=== PATIENT | female | born 1955 | race Caucasian/White ===

== ENCOUNTER → 2022-08-10 08:21 | Outpatient (REF) | payer OTHER, SELFPAY ==
--- NOTE | 2022-08-10 08:31 | CA_ITS ---
Transthoracic Echocardiogram Patient (Last, First, Middle): Josi Serrato M Gender: Female Date of : 1955 Age: 66 Procedure Date: 08/10/2022 Procedure Type: Transthoracic Echocardiogram Location: OP Height: 160.02 cm Weight: 75.75 kg BSA: 1.79 m2 Heart Rate: 54 bpm BP: 125 / 65 mmHg Pressure Vessel Inspector: [place] Referring MD: Shell Greenfield MD Symptoms: Z72.0 - Tobacco use Study Quality: Adequate ECG Rhythm: Bradycardia Conclusions: - The left ventricular systolic function is normal. The calculated ejection fraction is 69% by biplane method. - The inferoseptal wall is hypokinetic. - At most mild aortic stenosis. Findings Left Ventricle Normal left ventricular cavity size. The left ventricular systolic function is normal. The calculated ejection fraction is 69% by biplane method. There is no evidence of regional wall motion abnormalities. Diastolic function is normal for age. Wall Motion Rest Echo Findings The inferoseptal wall is hypokinetic. Right Ventricle Normal right ventricular cavity size and systolic function. Atria Both atria are normal in size. Aortic Valve The aortic valve was not well visualized. There is trace (trivial) aortic valve regurgitation. At most mild aortic stenosis. Mitral Valve The mitral valve appears normal. There is no mitral valve regurgitation. There is no mitral valve stenosis. Pulmonic Valve The pulmonic valve is likely normal. Tricuspid Valve There is trace tricuspid valve regurgitation. There is no evidence of pulmonary hypertension. Great Vessels The asc aorta is normal in size. Venous The inferior vena cava is normal in size and collapses greater than 50% with inspiration. Pericardium/Pleural There is no evidence of pericardial effusion. Prior Study Comparison Changes noted compared to prior study dated: 02/16/2015. See comment on wall motion. Measurements 2D Linear Measurements IVSd: 0.77 0.6-0.9/0.6-1.0 cm LVIDd: 4.51 3.9-5.3/4.2-5.9 cm LVIDd Index: 2.52 2.4-3.2/2.2-3.1 cm/m2 LVIDs: 4.04 2.0-3.6 cm LVPWd: 0.81 0.7-1.1 cm LA Diam: 2.70 2.7-3.8/3.0-4.0 cm LAIDs Index: 1.51 1.5-2.3 cm/m2 LV Mass: 138.92 67-162/88-224 g LV Mass Index: 77.61 43-95/49-115 g/m2 LVOT Diam: 1.80 3.0+(-)1.3 cm 2D Systolic Function EF 4C: 57.80 >55% EF 2C: 76.70 >55% EF BiP: 69.10 >55% Mitral Valve MV Pk E: 0.78 MV PK A: 0.64 MV Decel Time: 353.00 E/A: 1.20 E'Lateral: 11.20 E'Medial: 8.70 E/E' Med: 9.00 E/E' Lat: 7.00 PHT: 103.00 MVA PHT: 2.14 Decel [place]: 2.22 Aortic Valve AoV Pk Lio: 2.06 AoV Mn Lio: 1.35 AoV VTI: 0.46 AoV Pk Grad: 17.00 Aov Mn Grad: 9.00 CLEMENTE Cont.VTI: 1.99 AI Pk Lio: 3.70 AI [place]: 1.68 LVOT LVOT Pk Lio: 1.55 LVOT Mn Lio: 1.04 LVOT VTI: 0.36 LVOT Pk Grad: 10.00 LVOT Mn Grad: 5.00 LVOT Diam: 1.80 LVOT Area: 2.54 Diastolic Function MV Pk E: 0.78 MV Pk A: 0.64 E/A: 1.20 E'Medial: 8.70 E/E' Med: 9.00 E' Laterial: 11.20 E/E' Lat: 7.00 Right Ventricle TAPSE (mm): 24.30 TVS' Lio: 9.90 Tricuspid Valve RA Press: 3.00 Great Vessels Aorta Sinus of Valsalva: 2.50 2.0-3.5 cm Ao Asc: 2.90 2.1-3.4 cm Pulmonary Valve PV Pk Lio: 1.09 Peak PV Grad: 5.00 Updated in Other Vendor System with Status of Final Darci Rice MD electronically signed on 08/11/2022 1:14:57 PM with status of Final
[2022-08-10 09:20] LABS: MANUAL DIFF FLAG NO
[2022-08-10 09:29] LABS: Basophils Absolute Auto 0.1 X10*3/uL (0.0-0.2); Basophils Percent Auto 0.8 % (0-2); Eosinophils Absolute Auto 0.1 X10*3/uL (0.0-0.4); Eosinophils Percent Auto 2.1 % (0-4); Hematocrit 47.3 % (37.0-47.0); Hemoglobin 15.4 g/dl (12.0-16.0); Imm Gran Abs Auto 0.02 X10*3/uL (0.00-0.03); Imm Gran Pct Auto 0.3 % (0.0-0.4); Lymphocytes Percent Auto 32.4 % (20-40); Mean Corpuscular HGB Conc 32.6 g/dl (31.0-35.0); Mean Corpuscular Hemoglobin 30.3 pg (27.0-33.0); Mean Corpuscular Volume 92.9 fL (80.0-98.0); Mean Platelet Volume 8.6 fL (9.4-12.3); Monocytes Absolute Auto 0.5 X10*3/uL (0.1-1.2); Monocytes Percent Auto 8.4 % (2-11); Neutrophils Absolute Auto 3.5 x10*3/uL (2.0-8.3); Platelet Count 205 X10*3/uL (160-400); Red Blood Count 5.09 X10*6/uL (4.20-5.50); Red Cell Distribution Width 12.4 % (11.0-16.0); White Blood Count 6.3 X10*3/uL (4.8-10.8)
[2022-08-10 10:02] LABS: Alanine Aminotransferase 22 U/L (0-31); Albumin Level 4.7 g/dL (3.5-5.0); Alkaline Phosphatase 114 U/L (39-117); Anion Gap 14 (12-20); Aspartate Amino Transferase 22 U/L (5-31); Bilirubin Total 0.7 mg/dL (0.0-1.0); Blood Urea Nitrogen 19 mg/dL (9-16); Calcium 9.6 mg/dL (8.4-10.2); Carbon Dioxide 28 mmol/L (22-29); Chloride 102 mmol/L (96-108); Cholesterol 302 mg/dL; Estimated Glomerular Filt Rate > 60; Glucose Random 88 mg/dL (60-115); HDL Cholesterol 70 mg/dL; LDL Cholesterol Calculated 214 mg/dl; Potassium 4.7 mmol/L (3.3-5.1); Sodium 139 mmol/L (135-145); Total Protein 7.4 g/dL (6.5-8.0); Triglycerides 91 mg/dL
[2022-08-10 10:23] LABS: Free T4 (Free Thyroxine) 0.97 ng/dL (0.71-1.85); Thyroid Stimulating Hormone 4.18 uIU/mL (0.32-4.0); Vitamin D 25-OH Total 33.7 ng/mL (>30)
[2022-08-10 10:36] LABS: Folate 11.8 ng/mL (> or = 4.0); Vitamin B12 443 pg/mL (200-900)
== END ==
LOC: HO.CARD 08:21
PROVIDERS: PCP Internal Medicine; Visit Provider Internal Medicine
DX: E78.1 Pure hyperglyceridemia (principal); E78.00 Pure hypercholesterolemia, unspecified; Z72.0 Tobacco use
CPT/HCPCS: 36415; 80053; 80061; 82306; 82607; 82746; 84439; 84443; 85025; 93306

== ENCOUNTER 2022-08-17 08:48 | Outpatient (REF) | payer OTHER, SELFPAY ==
--- NOTE | ~2022-08-17 | MM_ITS ---
EXAMINATION: MM SCREENING DIGITAL BREAST TOMOSYNTHESIS, BILATERAL CLINICAL INFORMATION: Screening. Asymptomatic. The lifetime risk of breast cancer based on the Tyrer-Cuzick Model is 4%. COMPARISON: Mammography: 09/16/2017, 07/27/2016 TECHNIQUE: Digital breast tomosynthesis is performed in both the craniocaudal and mediolateral oblique views along with computer-aided detection (CAD). Synthesized 2D images are generated from the tomosynthesis. FINDINGS: There are scattered areas of fibroglandular density (ACR BI-RADS breast composition Category b). There are no significant masses, abnormal calcifications, or other abnormalities. No developing density or architectural abnormality. The axilla are unremarkable. There are 2 chronic dermal lesions again seen overlying the central and inner left breast on CC view and dermal lesion at the posterior medial inferior right breast. MM/MM tomosynthesis screening BI IMPRESSION: No mammographic evidence of malignancy. ASSESSMENT: BI-RADS 2: Benign RECOMMENDATION: Routine annual mammography screening. This patient's information was entered into a reminder system with a target due date for their next mammogram.
== END 2022-08-17 08:49 | disposition home or self-care (01) ==
LOC: HO.MAMMO 08:48
PROVIDERS: PCP Internal Medicine; Visit Provider Internal Medicine
DX: Z12.31 Encounter for screening mammogram for malignant neoplasm of breast (principal)
CPT/HCPCS: 77063; 77067

== ENCOUNTER 2022-08-31 13:41 | Outpatient (REF) | payer OTHER, SELFPAY ==
--- NOTE | ~2022-08-31 | CT_ITS ---
EXAMINATION: CT CHEST SCREENING CLINICAL INFORMATION: Current smoker and nicotine dependence. COMPARISON: None. TECHNIQUE: Multidetector volumetric CT imaging of the chest is performed without contrast using low dose technique. Additional 2D coronal and sagittal reformatted images and axial 3D maximum intensity projection (MIP) images are generated on the CT workstation. This CT examination was performed using dose optimization techniques as appropriate, variously including the following: *Automated exposure control *Adjustment of mA and/or kV according to patient size (this includes techniques or standardized protocols for targeted exams where dose is matched to indication/reason for exam; i.e. extremities or head) *Use of iterative reconstruction technique DLP: 46 mGy-cm FINDINGS: LUNGS: There is diffuse centrilobular emphysematous changes of both lungs without acute pneumonic process. Scattered 1 mm calcification seen in both upper lobes, right lower lobe and left lower lobe. There is a 6 mm nodule with eccentric calcification in the lingula adjacent to the major fissure axial image 273/6, 2 mm noncalcified nodule in the lingula axial image 256/6 and a 6 mm nodule right upper lobe perivascular axial image 189/6. There are 2 mm nodular thickenings in right and left major fissure likely lymph nodes. MEDIASTINUM: The thyroid lobes are symmetric and normal. The central trachea and the bronchi are widely patent. Heart size and the great vessels are normal caliber. No abnormal-sized lymph node seen. There is no pericardial effusion. Central trachea and the bronchi are widely patent. CORONARY ARTERY CALCIFICATION: There are coronary artery calcifications present. PLEURA: There is no pleural effusion. No pleural mass or thickening. AXILLA: No abnormal axillary lymph node seen. UPPER ABDOMEN: Visualized liver, spleen, pancreas and bilateral adrenal glands are unremarkable. The gallbladder has been surgically removed. OSSEOUS STRUCTURES: There is moderate ventral spondylosis throughout dorsal spine. No aggressive lytic or sclerotic process seen. CT/CT lung screening IMPRESSION: Diffuse emphysema without acute process. There are multiple calcified and noncalcified lung nodules largest noncalcified lung nodule measuring 6 mm. ASSESSMENT: Lung-RADS category 2: Benign. RECOMMENDATION: Low-dose annual CT chest exam.
== END 2022-08-31 13:42 | disposition home or self-care (01) ==
LOC: HO.CT 13:41
PROVIDERS: Visit Provider Physician Assistant Medical
DX: Z12.2 Encounter for screening for malignant neoplasm of respiratory organs (principal); F17.210 Nicotine dependence, cigarettes, uncomplicated
CPT/HCPCS: 71271; G0296

== ENCOUNTER 2022-10-19 13:29 | Outpatient (REF) | payer MEDICARE, OTHER, SELFPAY ==
--- NOTE | ~2022-10-19 | MM_ITS ---
EXAMINATION: BONE DENSITOMETRY CLINICAL INDICATION: Asymptomatic menopausal state. COMPARISON: None (current study represents initial baseline exam). TECHNIQUE: Using a [employer] DXA System (software version: 13.1) manufactured by [employer], dual-energy x-ray absorptiometry was performed of the lumbar spine and left hip. The images are of good technical quality. Summary results are attached. FINDINGS: AP SPINE L1-L4: BMD 0.880 g/cm2, Z-score -1.3, T-score -2.5, osteoporosis. LEFT FEMUR, NECK: BMD 0.932 g/cm2, Z-score 0.5, T-score -0.8, normal. LEFT FEMUR, TOTAL: BMD 0.791 g/cm2, Z-score -0.8, T-score -1.7, osteopenia. IDENTIFIED RISK FACTORS: Early menopause, hysterectomy, left oophorectomy, secondary osteoporosis, tobacco user (current smoker). HISTORY OF FRACTURE: None listed. MEDICATIONS: None listed. MM/XR DEXA axial skeleton IMPRESSION: 1. DIAGNOSIS: Osteoporosis based on the lowest T-score value of -2.5 in the lumbar spine applying World Health Organization criteria. 2. 10-YEAR FRACTURE RISK PREDICTION, FRAX: According to the guidelines, FRAX calculation should only be performed on patients in the osteopenia bone density category. Therefore, FRAX was not performed on this patient. 3. Treatment Recommendations: NOF guidelines recommend consideration for treatment in postmenopausal women and men age 50 and older presenting with the following: -A hip or vertebral (clinical or morphometric) fracture. -T-score less than or equal to -2.5 at the femoral neck or spine after appropriate evaluation to exclude secondary causes. -Low bone mass at the hip or spine and a 10-year fracture probability by FRAX of greater than or equal to 3% for hip fracture or greater than or equal to 20% for major osteoporotic fracture based on the [place] adapted WHO algorithm. 4. Other Recommendations: All treatment decisions require clinical judgment and consideration of individual patient factors, including patient preferences, comorbidities, previous drug use, risk factors not captured in the FRAX model (e.g. frailty, falls, vitamin D deficiency, increased bone turnover, interval significant decline in bone density) and possible under or overestimation of fracture risk by FRAX. Additional medical evaluation for secondary cause of low bone mineral density may be appropriate. FUTURE SCAN RECOMMENDATION: People with diagnosed cases of osteoporosis or at high risk for fracture should have regular bone mineral density tests. For patients eligible for Medicare, routine testing is allowed once every 2 years. The testing frequency can be increased to one year for patients who have rapidly progressing disease, those who are receiving or discontinuing medical therapy to restore bone mass, or have additional risk factors.
== END 2022-10-19 13:30 | disposition home or self-care (01) ==
LOC: HO.MAMMO 13:29
PROVIDERS: PCP Internal Medicine; Visit Provider Obstetrics & Gynecology
DX: Z13.820 Encounter for screening for osteoporosis (principal); Z78.0 Asymptomatic menopausal state
CPT/HCPCS: 77080

== ENCOUNTER → 2022-11-01 13:05 | Outpatient (BNVA) | payer MEDICARE, OTHER, SELFPAY | PROVIDERS: PCP Internal Medicine; Visit Provider Obstetrics & Gynecology | DX: M81.0 Age-related osteoporosis without current pathological fracture (principal); I25.10 Atherosclerotic heart disease of native coronary artery without angina pectoris; E78.00 Pure hypercholesterolemia, unspecified; G47.33 Obstructive sleep apnea (adult) (pediatric); F17.210 Nicotine dependence, cigarettes, uncomplicated | CPT/HCPCS: 93005; 99202; 99212 ==

== ENCOUNTER 2022-11-02 09:15 | Outpatient (REF) | payer MEDICARE, SELFPAY ==
--- NOTE | 2022-11-02 12:01 | PFT_ITS ---
INDICATION: COPD. SPIROMETRY: FEV1 to FVC of 70% with an FEV1 of 1.94 L, which is 83% predicted and an FVC of 2.76 L, which is 90% predicted. There was a significant response to bronchodilators noted. The [id number] was down to 49% predicted. The maximum voluntary ventilation 59% predicted. LUNG VOLUMES: Total lung capacity 108% predicted with residual volume 132% predicted. DIFFUSION CAPACITY: DLCO 64% predicted. COMPARISONS: None. INTERPRETATION: There is an obstructive ventilatory defect consistent with mild COPD. There is also significant response to bronchodilators noted. The patient does have evidence of small airways disease. There is also a moderate decrease in the maximum voluntary ventilation secondary to deconditioning and also worsening dynamic inspiratory capacity. Lung volumes with significant air trapping due to COPD and also mild diffusion impairment. Clinical correlation warranted. MD MAICO Rodriguez/[facility] / [id number]
== END 2022-11-02 09:16 | disposition home or self-care (01) ==
LOC: HO.RESP 09:15
PROVIDERS: PCP Internal Medicine; Visit Provider Internal Medicine
DX: J44.9 Chronic obstructive pulmonary disease, unspecified (principal)
CPT/HCPCS: 94060; 94727; 94729

== ENCOUNTER → 2022-12-07 09:19 | Outpatient (REF) | payer MEDICARE, SELFPAY ==
--- NOTE | ~2022-12-07 | NM_ITS ---
EXERCISE MYOCARDIAL PERFUSION STUDY INDICATION: Coronary artery disease, assess for ischemia TECHNIQUE: The patient was brought in for an exercise perfusion study on 12/07/2022. Patient performed exercise as per Shar protocol and was injected 25 mCi of sestamibi once target heart rate was achieved. Images were obtained using the SPECT gamma camera interlaced with the gating device. Images were obtained in supine position. Resting perfusion study was performed on 12/14/2022. Patient was administered 25 mCi of sestamibi intravenously at rest. Images were then obtained in supine position. Images were processed with the software and compared side to side in short axis, horizontal long axis and vertical long axis views. FINDINGS: Raw images were reviewed. The stress perfusion study showed mildly reduced tracer uptake in the basal septum. Similar finding in the CT attenuation corrected images. The gated study shows normal LV systolic function with calculated LVEF of 68%. LV cavity is normal in size. The gated study shows septal hypokinesis. Resting study shows diminished tracer uptake in the basal septum but otherwise unremarkable. No significant change with CT attenuation correction. Gating at rest reveals normal wall motion with ejection fraction at 61%. The findings are consistent with basal septal fixed defect. No clear reversible defects. NM/NM cardiolite stress test IMPRESSION: 1. Myocardial perfusion imaging study shows no clear evidence of any ischemia. Fixed defect in the basal septum, could be artifact. Cannot exclude a prior infarct. 2. Gated LVEF is 68% during stress and 61% during rest. 3. Transient ischemic dilatation not present. EKG component of the test reported separately.
--- NOTE | 2022-12-07 09:21 | CA_ITS ---
Acquisition Time: 2022-12-07 09:35:02 Total Exercise Time: 00:06:30 Test Indications: ABN ECHO Medications: SEE CHART Protocol: DARYL Max HR: 144 BPM 92% of Pred: 155 BPM Max BP: 190/070 mmHG Max Work Load: 7.7 METS Exercise stress test with exercise 6 min 30 sec, achieving 92% MPHR, with fatigue and mild sob, no chest discomfort, with isolated PVCs, with hypertensive response to exercise with max BP 190/70, without EKG changes meeting criteria for ischemia. In recovery BP returned to 130/70. Nuclear images pending. Test reviewed with Dr Barrientos Referred By: Darci Rice Overread By: ROB SIERRA
== END ==
LOC: HO.CARD 09:19
PROVIDERS: PCP Internal Medicine; Visit Provider Internal Medicine
DX: I25.10 Atherosclerotic heart disease of native coronary artery without angina pectoris (principal); E78.00 Pure hypercholesterolemia, unspecified
CPT/HCPCS: 78452; 93017; A9500

== ENCOUNTER 2023-01-18 08:22 | Outpatient (REF) | payer MEDICARE, SELFPAY ==
[2023-01-18 09:34] LABS: Alanine Aminotransferase 23 U/L (0-31); Albumin Level 4.2 g/dL (3.5-5.0); Alkaline Phosphatase 114 U/L (39-117); Anion Gap 13 (12-20); Aspartate Amino Transferase 24 U/L (5-31); Bilirubin Total 0.6 mg/dL (0.0-1.0); Blood Urea Nitrogen 14 mg/dL (9-16); Calcium 8.9 mg/dL (8.4-10.2); Carbon Dioxide 28 mmol/L (22-29); Chloride 106 mmol/L (96-108); Cholesterol 181 mg/dL; Estimated Glomerular Filt Rate > 60; Glucose Random 88 mg/dL (60-115); HDL Cholesterol 61 mg/dL; LDL Cholesterol Calculated 96 mg/dl; Potassium 4.8 mmol/L (3.3-5.1); Sodium 142 mmol/L (135-145); Total Protein 6.7 g/dL (6.5-8.0); Triglycerides 122 mg/dL
[2023-01-18 09:56] LABS: Thyroid Stimulating Hormone 3.97 uIU/mL (0.32-4.0)
== END 2023-01-18 08:23 | disposition home or self-care (01) ==
LOC: HO.LAB 08:22
PROVIDERS: Visit Provider Internal Medicine
DX: E03.9 Hypothyroidism, unspecified (principal); E78.00 Pure hypercholesterolemia, unspecified
CPT/HCPCS: 36415; 80053; 80061; 84439; 84443

== ENCOUNTER → 2023-01-30 09:40 | Outpatient (BNVA) | payer MEDICARE, SELFPAY | PROVIDERS: PCP Internal Medicine; Referring Provider Internal Medicine; Visit Provider Internal Medicine | DX: I25.10 Atherosclerotic heart disease of native coronary artery without angina pectoris (principal); E78.00 Pure hypercholesterolemia, unspecified; G47.33 Obstructive sleep apnea (adult) (pediatric); F17.210 Nicotine dependence, cigarettes, uncomplicated | CPT/HCPCS: 99212 ==

== ENCOUNTER 2023-03-01 15:38 | Outpatient (REF) | payer MEDICARE, SELFPAY ==
--- NOTE | ~2023-03-01 | US_ITS ---
EXAMINATION: US EXTRACRANIAL CAROTID DUPLEX, BILATERAL CLINICAL INFORMATION: Carotid stenosis COMPARISON: None available. TECHNIQUE: Real-time ultrasound and Doppler techniques (integrating B-mode 2-D vascular images, Doppler spectral analysis and color-flow Doppler imaging) were utilized to interrogate the extracranial carotid arteries, the vertebral arteries and proximal subclavian arteries bilaterally. The degree of stenosis is determined by criteria similar to NASCET. FINDINGS: Right Side: 1. There is no significant atherosclerotic plaque seen in the bifurcation/proximal ICA region. 2. The common carotid artery PSV proximally is 104 cm/s and distally 78.1 cm/s. 3. The proximal internal carotid artery velocities are 68.9 cm/s systolic and 24.6 cm/s diastolic. 4. The proximal external carotid artery PSV is 100 cm/s. 5. The vertebral artery shows antegrade flow. 6. The subclavian artery waveforms are normal. Left Side: 1. There is no significant atherosclerotic plaque seen in the bifurcation/proximal ICA region. 2. The common carotid artery PSV proximally is 110 cm/s and distally 114 cm/s. 3. The proximal internal carotid artery velocities are 77.4 cm/s systolic and 32.4 cm/s diastolic. 4. The proximal external carotid artery PSV is 100 cm/s. 5. The vertebral artery shows antegrade flow. 6. The subclavian artery waveforms are normal. US/US carotid duplex BI IMPRESSION: 1. RIGHT: Normal right internal carotid artery without atherosclerotic plaque or hemodynamically significant stenosis. 2. LEFT: Normal left internal carotid artery without atherosclerotic plaque or hemodynamically significant stenosis.
== END 2023-03-01 15:39 | disposition home or self-care (01) ==
LOC: HO.US 15:38
PROVIDERS: PCP Internal Medicine; Visit Provider Internal Medicine
DX: I65.23 Occlusion and stenosis of bilateral carotid arteries (principal)
CPT/HCPCS: 93880

== ENCOUNTER 2024-12-30 08:37 | Outpatient (AMB) | payer MEDICARE, SELFPAY ==
[2024-12-30 08:39] VITALS: BP 136/72; PULSE 89; O2SAT 95; BMI 28.9
--- NOTE | 2024-12-30 08:39 | A.OFFPC_ITS ---
Vital Signs 12/30/24 08:39 Height 5 ft 3 in Weight 163 lb BMI 28.9 BP 136/72 Blood Pressure Location Lt brachial Position Sitting Pulse 89 Pulse Source Pulse Oximeter Pulse Oximetry (%) 95 Oxygen Delivery Method Room Air Intake Visit Reasons: back and hips pain Allergies No Known Allergies [No Known Allergies*] Allergy (Verified 12/30/24 08:40) Medication List - Last Reconciled 12/30/24 by Shell Greenfield MD albuterol sulfate 90 mcg/actuation (Ventolin HFA) 2 puffs inhalation Q6H PRN cetirizine 10 mg PO DAILY PRN ibuprofen 800 mg PO Q8H Tobacco use date assessed: 12/30/24 Fall risk assessment: No Falls in past year Last assessed Fall Risk: 12/30/24 Dental Screening Dental Screen Date: 12/30/24 Did you have a dental visit in the last 12 months?: Yes Did you have a dental problem in the last 6 months where you did not have access to dental care?: No Was dental information given to patient?: Patient has dentist HPI back and hips pain HPI Details 8 months ago low back pain- hx of backj surgery also has hip pain. 2x a week The patient is a 69-year-old female presenting with a follow-up for coronary artery disease and management of associated chronic conditions. She has a history of obstructive sleep apnea managed with CPAP, mild aortic stenosis, hypercholesterolemia, hypothyroidism, and COPD. She has been advised to manage her cardiovascular risk factors aggressively, including smoking cessation given her history of smoking. Despite previous recommendations, she continues to smoke but expresses an intent to quit due to stress at home and family encouragement. The patient has been on rosuvastatin, resulting in a significant reduction of LDL cholesterol levels from 214 mg/dL in 2021 to 96 mg/dL in 2022, although it remains above the target of less than 70 mg/dL. She is also on low-dose aspirin for CAD. Recent medical consultations include a cardiology visit in 2022, where a myocardial perfusion scan revealed no ischemia but a fixed defect indicating a prior infarct. Carotid ultrasound yielded normal results. Routine follow-ups revealed normal blood glucose and liver function tests. The patient's preventat lachelle screenings, colonoscopy, stool test, and mammogram, are due. She reports an earache attributed to sinus issues and admits to experiencing muscle spasms and discomfort in her lower back and hip, which may be related to previous L4 back surgery. She indicates the persistence of these symptoms over the years and describes current management challenges due to work duties and medical supplies. [facility] Medical History (Updated 12/30/24 @ 09:00 by Shell Greenfield MD) Nicotine dependence, cigarettes, uncomplicated Well woman exam Hypertriglyceridemia Overweight (BMI 25.0-29.9) History of seizures Hypothyroid Lumbar radiculopathy Surgical History History of tubal ligation History of colonoscopy History of appendectomy History of hysterectomy History of lumbar surgery History of cholecystectomy History of meniscectomy of left knee Family History (Updated 12/30/24 @ 08:40 by Birgit Cintron [facility]) Sister Skin cancer Father Lung cancer Mother Lung cancer Social History (Updated 11/01/22 @ 13:55 by Maikel Torres Singh) Housing: Apartment Alcohol intake: current Alcohol intake frequency: holidays/special occasions only Patient Tobacco Use Status: Current everyday Tobacco user Tobacco use type: Cigarette Cigarette Packs Per Day: 1 Cigarettes Per Day: 20 Years Smoked: (onset 15yo, 1/2-1ppd x 51yrs, 37pyh) e-Cigarette/Vaping Use: Never Used Second Hand Smoke Exposure: No service: No Current occupational status: employed Cognitive needs: No Hearing needs: No Vision needs: Yes (glasses ) Female Reproductive History Menstrual Age of Menarche: 15 Questionnaire PHQ-9 Over the last 2 weeks, how often have you been bothered by any of the following problems? 1. Little interest or pleasure in doing things: not at all 2. Feeling down, depressed, or hopeless: not at all 3. Trouble falling or staying asleep, or sleeping too much: not at all 4. Feeling tired or having little energy: not at all 5. Poor appetite or overeating: not at all 6. Feeling bad about yourself - or that you are a failure or have let yourself or your family down: not at all 7. Trouble concentrating on things, such as reading the newspaper or watching television: not at all 8. Moving or speaking so slowly that other people could have noticed. Or the opposite - being so fidgety or restless that you have been moving around a lot more than usual: not at all 9. Thoughts that you would be better off or of hurting yourself in some way: not at all Total score: 0 Depression Screening Interpretation: Negative Depression Screening Done: Yes Source: Developed by Drs. Ernst Falcon, Massiel Ellis, Neil Desir and colleagues, with an educational vance from [employer]. Thrive Questionnaire Date Thrive assessed: 12/30/24 I am a: Patient What is your living situation today?: I have a steady place to live Within the past 12 months, did the food you bought not last and you didn't have the money to get more?: Never true Within the past 12 months, did you worry whether your food would run out before you got money to buy more?: Never true Do you have trouble paying for medicines?: No Do you have trouble getting transportation to medical appointments?: No Do you have trouble paying your heating and electricity bill?: No Do you have trouble taking care of your child, family member or friend?: No Do you have trouble with day-to-day activities such as bathing, preparing meals, shopping, managing finances, etc.?: No Are you currently unemployed and looking for a job?: No Are you interested in more education?: No Currently or been in a relationship where the following occur: No concerns reported THRIVE Score: 0 AUDIT C Alcohol Use Questionnaire (AUDIT-C) 1. How often do you have a drink containing alcohol?: Monthly or less 2. How many drinks containing alcohol do you have on a typical day when you are drinking?: 1 or 2 3. How often do you have six or more drinks on one occasion?: Never Total Score: 1 QUE-7 AMB Questionnaire QUE-7 Date QUE - 7 assessed: 12/30/24 Feeling nervous, anxious, or on edge: 0 = Not at all Not being able to stop or control worryin = Not at all Worrying too much about different things: 0 = Not at all Trouble relaxin = Not at all Being so restless that it is hard to sit still: 0 = Not at all Becoming easily annoyed or irritable: 0 = Not at all Feeling afraid as if something awful might happen: 0 = Not at all Total QUE-7 score (0-4 normal; 5-9 mild; 10-14 moderate; 15-21 severe): 0 Source: Developed by Drs. Ernst Falcon, Massiel Ellis, Neil Desir and colleagues, with an educational vance from [employer]. Physical exam (Primary Care) Vital Signs: Last Vital Signs Pulse 89 12/30/24 08:39 BP 136/72 12/30/24 08:39 Pulse Ox 95 12/30/24 08:39 Oxygen Delivery Method Room Air 12/30/24 08:39 BMI result Body Mass Index 28.9 Tobacco/Smoking Status: Tobacco use Status Tobacco use date assessed 12/30/24 12/30/24 08:45 Patient Tobacco Use Status Current everyday Tobacco 12/30/24 08:45 Tobacco use type Cigarette 12/30/24 08:45 e-Cigarette/Vaping Use Never Used 12/30/24 08:45 PHQ-9: PHQ-9 Score PHQ-9: Total score 0 12/30/24 09:12 Depression Screening Interpretation: Negative Thrive Assessment: Date of Thrive Assessment Date Thrive assessed 12/30/24 12/30/24 08:45 Currently or been in a relationship where the following occur: No concerns reported Const General: alert; No acute distress Eyes Conjunctivae: conjunctivae normal Resp Auscultation: clear to auscultation bilaterally Cardio Rate: regular rate Rhythm: regular rhythm GI Inspection: Yes normal to inspection Extrem General: Yes normal to inspection and No edema Office Procedures Flu Questionnaire Does the patient have a severe egg allergy?: No Does the patient have severe life threatening allergies?: No Does the patient have a fever or illness today?: No Has the patient ever had Guillain-[place] Syndrome?: No Has the patient ever had any past reaction to a flu shot?: No Results AMB Urinalysis, Automated UA Leukoctes 125 Judy/uL Last Edit by Birgit Cintron CMA on 12/30/24 09: 19 UA Nitrite Negative Last Edit by Birgit Cintron CMA on 12/30/24 09:19 UA Urobilinogen 0.2 mg/dL Last Edit by Birgit Cintron CMA on 12/30/24 0 9:1 9 UA Protein 15 mg/dL Last Edit by Birgit Cintron CMA on 12/30/24 09:19 UA pH 6.0 Last Edit by Birgit Cintron CMA on 12/30/24 09:19 UA Blood 0 Edmond/uL Last Edit by Birgit Cintron CMA on 12/30/24 09:19 UA Specific [place] 1.030 Last Edit by Birgit Cintron CMA on 12/30/24 09:19 UA Ketone Negative Last Edit by Birgit Cintron CMA on 12/30/24 09:19 UA Bilirubin 0 mg/dL Last Edit by Birgit Cintron CMA on 12/30/24 09:19 UA Glucose 0 mg/dL Last Edit by Birgit Cintron CMA on 12/30/24 09:19 Immunizations Fluarix Triv [id number] (PF) 45 mcg (15 mcg x 3)/0.5 mL IM syringe Performing Provider: Shell Greenfield MD [facility] Administered by: Birgit Cintron CMA on 12/30/24 09:12 Dose Route Admin Location Dispensed Lot Number Expiration Date NDC Data Processing Consultant 0.5 mL IM Left Deltoid 0.5 mL [id number] 05/17/25 [id number] [employer] VIS Given Date VIS Provided VIS Publication Date 12/30/24 Single Vaccine 21 Eligibility Eligibility Date Funding Source Not [facility] Eligible 12/30/24 Private Coding Level of Care Code Est Pt Level 4 (66020) Complex EM visit Add On G2211 Diagnoses Tobacco abuse Z72.0 Atherosclerotic cardiovascular disease I25.10 COPD (chronic obstructive pulmonary disease) J44.9 Hypercholesterolemia E78.00 Hypothyroid E03.9 Obstructive sleep apnea (adult) (pediatric) G47.33 Breast cancer screening by mammogram Z12.31 Colon cancer screening Z12.11 Lumbar degenerative disc disease M51.369 Hip pain, right M25.551 Assessment & Plan Assessment & Plan (1) Tobacco abuse: Code(s): Z72.0 - Tobacco use Category: Medical Plan: Patient is strongly advised to stop smoking (2) Atherosclerotic cardiovascular disease: Code(s): I25.10 - Atherosclerotic heart disease of [place] coronary artery without angina pectoris Category: Medical Plan: Patient is strongly advised to stop smoking. Control the cholesterol, weight, blood pressure, patient has been advised to take aspirin 81 mg once a day, this was mentioned in 2022. As the patient has coronary artery disease. (3) COPD (chronic obstructive pulmonary disease): Comment: PFT 10/2022 mild Code(s): J44.9 - Chronic obstructive pulmonary disease, unspecified Category: Medical Plan: Patient is strongly advised to stop smoking! (4) Hypercholesterolemia: Code(s): E78.00 - Pure hypercholesterolemia, unspecified Category: Medical Plan: Avoid fried foods, chicken skin, eggs, butter margarine, pastries and meat. Be it pork or beef they have a lot of cholesterol with a coronary artery disease needs to have the LDL below 70. Patient needs blood work patient is on rosuvastatin 40 mg once a day (5) Hypothyroid: Code(s): E03.9 - Hypothyroidism, unspecified Category: Medical Plan: Patient needs blood work (6) Obstructive sleep apnea (adult) (pediatric): Comment: ON CPAP Dr. Heath Code(s): G47.33 - Obstructive sleep apnea (adult) (pediatric) Category: Medical (7) Breast cancer screening by mammogram: Code(s): Z12.31 - Encounter for screening mammogram for malignant neoplasm of breast Category: Medical (8) Colon cancer screening: Code(s): Z12.11 - Encounter for screening for malignant neoplasm of colon Category: Medical (9) Lumbar degenerative disc disease: Code(s): M51.369 - Other intervertebral disc degeneration, lumbar region without mention of lumbar back pain or lower extremity pain Category: Medical (10) Hip pain, right: Code(s): M25.551 - Pain in right hip Category: Medical (11) Breast cancer screening by mammogram: Code(s): Z12.31 - Encounter for screening mammogram for malignant neoplasm of breast Category: Medical Plan - Continue rosuvastatin 40 mg daily to further lower LDL cholesterol levels below the target of 70 mg/dL for cardiovascular protection. - Reinforce smoking cessation strategies; consider nicotine replacement therapies or alternative cessation aids as discussed. - Continue low-dose aspirin 81 mg daily for cardiovascular prophylaxis. - Schedule overdue screenings: colonoscopy, stool test, and mammogram. - Address earache with appropriate interventions and consider further evaluation if symptoms persist. - Evaluate back and hip discomfort related to muscle spasms; consider physical therapy evaluation and potential adjustments to current pain management regimen. - Plan follow-up visit to reassess conditions and the effectiveness of current interventions. Orders: Orders Complete Blood Count Auto Diff Today I25.10 - Atherosclerotic heart disease of [place] coronary artery without angina pectoris Lipid Panel Today E78.00 - Pure hypercholesterolemia, unspecified, I25.10 - Atherosclerotic heart disease of [place] coronary artery without angina pectoris Thyroid Stimulating Hormone Today I25.10 - Atherosclerotic heart disease of [place] coronary artery without angina pectoris Vitamin B12 and Folate Today I25.10 - Atherosclerotic heart disease of [place] coronary artery without angina pectoris UA CC w/rflx Micro + Cult Today I25.10 - Atherosclerotic heart disease of [place] coronary artery without angina pectoris, R30.0 - Dysuria PT Evaluation and Treatment Today M25.551 - Pain in right hip Comprehensive Met. Panel Today I25.10 - Atherosclerotic heart disease of [place] coronary artery without angina pectoris Free T4 (Free Thyroxine) Today I25.10 - Atherosclerotic heart disease of [place] coronary artery without angina pectoris Vitamin D 25-OH Total Today I25.10 - Atherosclerotic heart disease of [place] coronary artery without angina pectoris XR hip RT min 2V Today M25.551 - Pain in right hip XR lumbar spine 2-3V Today M51.369 - Other intervertebral disc degeneration, jung mbar region without mention of lumbar back pain or lower extremity pain MM tomosynthesis screening BI Today Z12.31 - Encounter for screening mammogram for malignant neoplasm of breast CA echo transthoracic complete Today I35.0 - Nonrheumatic aortic (valve) stenosis Referrals Gastroenterology Referral Z12.11 - Encounter for screening for malignant neoplasm of colon Medications: New meloxicam 15 mg PO DAILY 30 tabs 0RF M25.551 - Pain in right hip aspirin 81 mg PO DAILY 90 tabs 2RF I25.10 - Atherosclerotic heart disease of [place] coronary artery without angina pectoris nicotine 1 patch transdermal DAILY 28 ea 0RF F17.200 - Nicotine dependence, unspecified, uncomplicated nicotine (polacrilex) 2 mg buccal Q2H PRN 100 ea 0RF nicotine cravings F17.200 - Nicotine dependence, unspecified, uncomplicated Refilled albuterol sulfate 90 mcg/actuation (Ventolin HFA) 2 puffs inhalation Q6H PRN 8.5 grams 0RF shortness of breath or wheezing J44.9 - Chronic obstructive pulmonary disease, unspecified
== END 2024-12-30 09:29 | disposition home or self-care (01) ==
PROVIDERS: PCP Internal Medicine; Visit Provider Internal Medicine
DX: Z72.0 Tobacco use (principal); I25.10 Atherosclerotic heart disease of native coronary artery without angina pectoris; J44.9 Chronic obstructive pulmonary disease, unspecified; E78.00 Pure hypercholesterolemia, unspecified; E03.9 Hypothyroidism, unspecified; G47.33 Obstructive sleep apnea (adult) (pediatric); Z12.31 Encounter for screening mammogram for malignant neoplasm of breast; Z12.11 Encounter for screening for malignant neoplasm of colon; M51.369 Other intervertebral disc degeneration, lumbar region without mention of lumbar back pain or lower extremity pain; M25.551 Pain in right hip; Z23 Encounter for immunization; M54.50 Low back pain, unspecified

== ENCOUNTER → 2024-12-30 08:37 | Outpatient (BNVA) | payer MEDICARE, SELFPAY | PROVIDERS: PCP Internal Medicine; Visit Provider Internal Medicine | DX: Z23 Encounter for immunization (principal); I25.10 Atherosclerotic heart disease of native coronary artery without angina pectoris; J44.9 Chronic obstructive pulmonary disease, unspecified; E78.00 Pure hypercholesterolemia, unspecified | CPT/HCPCS: 81003; 90471; 90656; 99212 ==

== ENCOUNTER 2025-01-01 12:41 | Outpatient (REF) | payer MEDICARE, SELFPAY ==
--- NOTE | ~2025-01-01 | XR_ITS ---
EXAMINATION: XR HIP, RIGHT CLINICAL INFORMATION: M25.551 - Pain in right hip COMPARISON: None available. TECHNIQUE: Two views of the right hip. FINDINGS: Sclerosis of the articular surface of the right acetabulum. No acute cortical disruption or malalignment. No lytic or blastic lesions. XR/XR hip RT min 2V IMPRESSION: Mild osteoarthrosis, right hip. Electronically signed by: All Huerta MD 01/05/2025 09:26 AM [facility]
--- NOTE | ~2025-01-01 | XR_ITS ---
EXAMINATION: XR LUMBOSACRAL SPINE CLINICAL INFORMATION: M51.369 - Other intervertebral disc degeneration, lumbar region without. COMPARISON: 06/24/2018 TECHNIQUE: Three views of the lumbosacral spine. FINDINGS: Surgical clips right upper quadrant. Mild dextroscoliosis of the lumbar spine. Diffuse demineralization. Atherosclerotic aortic calcifications. Multilevel facet arthritis. Degenerative changes in the bilateral sacroiliac joints. Grade 1 retrolisthesis of L1 on L2, L2 on L3, and L3 on L4. Multilevel degenerative changes with multilevel loss of disc space height. Interval progression of advanced degenerative changes with loss of disc space height at L5-S1. XR/XR lumbar spine 2-3V IMPRESSION: Multilevel degenerative changes as detailed above. Electronically signed by: Ester Valle MD 01/04/2025 01:24 PM [facility]
[2025-01-01 12:55] LABS: MANUAL DIFF FLAG NO
[2025-01-01 13:57] LABS: Basophils Absolute Auto 0.1 X10*3/uL (0.0-0.2); Basophils Percent Auto 0.8 % (0-2); Eosinophils Absolute Auto 0.1 X10*3/uL (0.0-0.4); Eosinophils Percent Auto 2.1 % (0-4); Hematocrit 47.7 % (37.0-47.0); Hemoglobin 15.9 g/dl (12.0-16.0); Imm Gran Abs Auto 0.02 X10*3/uL (0.00-0.03); Imm Gran Pct Auto 0.3 % (0.0-0.4); Lymphocytes Absolute Auto 2.1 X10*3/uL (1.2-4.9); Mean Corpuscular HGB Conc 33.3 g/dl (31.0-35.0); Mean Platelet Volume 8.9 fL (9.4-12.3); Monocytes Absolute Auto 0.5 X10*3/uL (0.1-1.2); Monocytes Percent Auto 8.4 % (2-11); Neutrophils Absolute Auto 3.4 x10*3/uL (2.0-8.3); Neutrophils Percent Auto 54.4 % (45-73); Platelet Count 216 X10*3/uL (160-400); Red Blood Count 5.13 X10*6/uL (4.20-5.50); Red Cell Distribution Width 12.4 % (11.0-16.0); White Blood Count 6.3 X10*3/uL (4.8-10.8)
[2025-01-01 14:36] LABS: Appearance Urine Clear; Color Urine Yellow; Glucose Urine UA Negative (Negative); Leukocyte Esterase Urine Moderate (2+) (Negative); Nitrite Urine Negative (Negative); PH 5.5 (5.0-9.0); Specific Gravity - Urine 1.025 (1.005-1.025); UMIC TRIGGER UACC YES; Urine Blood Negative (Negative); Urine Ketones Negative (Negative); Urine Protein Negative (Neg-Trace)
[2025-01-01 14:39] LABS: Bacteria Urine Trace (None Seen); Hyaline Casts Urine 0-2 /LPF (0-2); RBC Urine 0-2 /HPF (0-2); UACC Culture Trigger YES
[2025-01-01 14:52] LABS: Alanine Aminotransferase 29 U/L (0-31); Albumin Level 4.4 g/dL (3.5-5.0); Alkaline Phosphatase 117 U/L (39-117); Anion Gap 12 (12-20); Aspartate Amino Transferase 27 U/L (5-31); Bilirubin Total 0.4 mg/dL (0.0-1.0); Blood Urea Nitrogen 20 mg/dL (9-16); Calcium 9.6 mg/dL (8.4-10.2); Carbon Dioxide 25 mmol/L (22-29); Chloride 103 mmol/L (96-108); Cholesterol 272 mg/dL (<200); Estimated Glomerular Filt Rate > 60; Glucose Random 88 mg/dL (60-115); HDL Cholesterol 76 mg/dL (>40); LDL Cholesterol Calculated 171 mg/dL (<100); Potassium 4.2 mmol/L (3.3-5.1); Sodium 136 mmol/L (135-145); Total Protein 7.8 g/dL (6.5-8.0); Triglycerides 127 mg/dL (<150)
[2025-01-01 14:57] LABS: Free T4 (Free Thyroxine) 0.88 ng/dL (0.71-1.85); Vitamin D 25-OH Total 42.3 ng/mL (>30)
[2025-01-01 15:14] LABS: Folate 8.3 ng/mL (> or = 4.0); Vitamin B12 508 pg/mL (200-900)
== END 2025-01-01 12:42 | disposition home or self-care (01) ==
LOC: HO.XRAY 12:41
PROVIDERS: PCP Internal Medicine; Visit Provider Internal Medicine
DX: I25.10 Atherosclerotic heart disease of native coronary artery without angina pectoris (principal); E78.00 Pure hypercholesterolemia, unspecified; M25.551 Pain in right hip; M51.369 Other intervertebral disc degeneration, lumbar region without mention of lumbar back pain or lower extremity pain; R30.0 Dysuria
CPT/HCPCS: 36415; 72100; 73502; 80053; 80061; 81001; 82306; 82607; 82746; 84439; 84443; 85025; 87086

== ENCOUNTER → 2025-01-01 12:56 | Outpatient (BNV) | payer MEDICARE, SELFPAY | PROVIDERS: PCP Internal Medicine; Visit Provider Radiology Diagnostic Radiology | DX: M16.11 Unilateral primary osteoarthritis, right hip (principal) | CPT/HCPCS: 73502 ==

== ENCOUNTER → 2025-01-13 12:45 | Outpatient (REF) | payer MEDICARE, SELFPAY ==
--- NOTE | 2025-01-13 12:48 | CA_ITS ---
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 The calculated ejection fraction is 66% by biplane method. - The basal inferolateral segment is hypokinetic. - Aortic valve sclerosis, but no significant stenosis. Findings Left Ventricle Normal left ventricular cavity size. There is normal left ventricular wall thickness. The left ventricular systolic function is normal. The calculated ejection fraction is 66% by biplane method. There is no evidence of regional wall motion abnormalities. Diastolic function is normal for age. Wall Motion Rest Echo Findings The basal inferolateral segment is hypokinetic. Atria Both atria are normal in size. Aortic Valve There is a normal trileaflet aortic valve. There is mild calcification of the aortic valve. There is no aortic valve stenosis. There is trace (trivial) aortic valve regurgitation. Mitral Valve The mitral valve appears normal. There is no mitral valve regurgitation. There is no mitral valve stenosis. Pulmonic Valve The pulmonic valve is likely normal. Tricuspid Valve There is trace tricuspid valve regurgitation. There is no evidence of pulmonary hypertension. Great Vessels The asc aorta is normal in size. Venous The inferior vena cava is normal in size and collapses greater than 50% with inspiration. Pericardium/Pleural There is no evidence of pericardial effusion. Prior Study Comparison No significant change compared to prior study dated: 08/10/2022. Measurements 2D Linear Measurements IVSd: 0.60 0.6-0.9/0.6-1.0 cm LVIDd: 4.42 3.9-5.3/4.2-5.9 cm LVIDd Index: 2.47 2.4-3.2/2.2-3.1 cm/m2 LVIDs: 2.80 2.0-3.6 cm LVPWd: 0.59 0.7-1.1 cm LA Diam: 3.20 2.7-3.8/3.0-4.0 cm LAIDs Index: 1.79 1.5-2.3 cm/m2 LV Mass: 93.62 67-162/88-224 g LV Mass Index: 52.30 43-95/49-115 g/m2 LVOT Diam: 1.90 3.0+(-)1.3 cm 2D Systolic Function EF 4C: 63.80 >55% EF 2C: 67.30 >55% EF BiP: 66.00 >55% Mitral Valve MV Pk E: 0.86 MV PK A: 0.49 MV Decel Time: 202.00 E/A: 1.80 E'Lateral: 10.30 E'Medial: 9.46 E/E' Med: 9.10 E/E' Lat: 8.30 PHT: 59.00 MVA PHT: 3.73 Decel Dale: 4.24 Aortic Valve AoV Pk Lio: 2.21 AoV Mn Lio: 1.40 AoV VTI: 0.45 AoV Pk Grad: 20.00 Aov Mn Grad: 9.00 CLEMENTE Cont.VTI: 2.07 AI Pk Lio: 4.26 AI Dale: 2.23 LVOT LVOT Pk Lio: 1.69 LVOT Mn Lio: 1.04 LVOT VTI: 0.33 LVOT Pk Grad: 11.00 LVOT Mn Grad: 6.00 LVOT Diam: 1.90 LVOT Area: 2.84 Diastolic Function MV Pk E: 0.86 MV Pk A: 0.49 E/A: 1.80 E'Medial: 9.46 E/E' Med: 9.10 E' Laterial: 10.30 E/E' Lat: 8.30 Right Ventricle TAPSE (mm): 25.20 TVS' Lio: 13.30 Tricuspid Valve TR Pk Lio: 2.33 TR Pk Grad: 22.00 RA Press: 8.00 RVSP: 30.00 Great Vessels Aorta Sinus of Valsalva: 2.60 2.0-3.5 cm Ao Asc: 3.40 2.1-3.4 cm Pulmonary Veins Pulm Vein S/D 0.80 Pulmonary Valve PV Pk Lio: 1.14 Peak PV Grad: 5.00 Updated in Other Vendor System with Status of Final Darci Rice MD electronically signed on 01/13/2025 3:32:07 PM with status of Final
== END ==
LOC: HO.CARD 12:45
PROVIDERS: PCP Internal Medicine; Visit Provider Internal Medicine
DX: I35.0 Nonrheumatic aortic (valve) stenosis (principal)
CPT/HCPCS: 93306

== ENCOUNTER → 2025-01-13 12:48 | Outpatient (BNV) | payer MEDICARE, SELFPAY | PROVIDERS: PCP Internal Medicine; Visit Provider Internal Medicine | DX: I35.1 Nonrheumatic aortic (valve) insufficiency (principal) | CPT/HCPCS: 93306 ==

== ENCOUNTER 2025-03-02 16:23 | Outpatient (REF) | payer MEDICARE, SELFPAY | END 2025-03-02 16:24 | disposition home or self-care (01) | LOC: HO.MAMMO 16:23 | PROVIDERS: PCP Internal Medicine; Visit Provider Internal Medicine | DX: Z12.31 Encounter for screening mammogram for malignant neoplasm of breast (principal) | CPT/HCPCS: 77063; 77067 ==

== ENCOUNTER → 2025-03-02 16:30 | Outpatient (BNV) | payer MEDICARE, SELFPAY | PROVIDERS: PCP Internal Medicine; Visit Provider Internal Medicine | DX: Z12.31 Encounter for screening mammogram for malignant neoplasm of breast (principal) | CPT/HCPCS: 77063; 77067 ==

== ENCOUNTER 2025-04-02 09:52 | Outpatient (AMB) | payer MEDICARE, SELFPAY ==
[2025-04-02 09:56] VITALS: BP 118/62; PULSE 74; O2SAT 98; BMI 28.9
--- NOTE | 2025-04-02 09:56 | A.OFFPC_ITS ---
Vital Signs 04/02/25 09:56 Height 5 ft 3 in Weight 163 lb BMI 28.9 BP 118/62 Blood Pressure Location Lt brachial Position Sitting Pulse 74 Pulse Source Pulse Oximeter Pulse Oximetry (%) 98 Oxygen Delivery Method Room Air Intake Visit Reasons: smoking, COPD Allergies No Known Allergies [No Known Allergies*] Allergy (Verified 04/02/25 09:57) Medication List - Last Reconciled 04/02/25 by Shell Greenfield MD albuterol sulfate 90 mcg/actuation (Ventolin HFA) 2 puffs inhalation Q6H PRN aspirin 81 mg PO DAILY atorvastatin 80 mg PO DAILY cetirizine 10 mg PO DAILY PRN meloxicam 15 mg PO DAILY nicotine 1 patch transdermal DAILY nicotine (polacrilex) 2 mg buccal Q2H PRN Tobacco use date assessed: 12/30/24 Fall risk assessment: No Falls in past year Last assessed Fall Risk: 04/02/25 Dental Screening Dental Screen Date: 12/30/24 [facility] Medical History (Updated 04/02/25 @ 10:17 by Shell Greenfield MD) Smoking Nicotine dependence, cigarettes, uncomplicated Well woman exam Hypertriglyceridemia Overweight (BMI 25.0-29.9) History of seizures Hypothyroid Lumbar radiculopathy Surgical History History of tubal ligation History of colonoscopy History of appendectomy History of hysterectomy History of lumbar surgery History of cholecystectomy History of meniscectomy of left knee Family History (Updated 12/30/24 @ 08:40 by Birgit Cintron CMA) Sister Skin cancer Father Lung cancer Mother Lung cancer Social History (Updated 11/01/22 @ 13:55 by KIMBERLEE Owen) Housing: Apartment Alcohol intake: current Alcohol intake frequency: holidays/special occasions only Patient Tobacco Use Status: Current someday Tobacco user Tobacco use type: Cigarette Cigarette Packs Per Day: 1 Cigarettes Per Day: 4 Years Smoked: (onset 15yo, 1/2-1ppd x 51yrs, 37pyh) Packs Per Year: 0 Packs per year/per ci.00 e-Cigarette/Vaping Use: Never Used Second Hand Smoke Exposure: No service: No Current occupational status: employed Cognitive needs: No Hearing needs: No Vision needs: Yes (glasses ) Female Reproductive History Menstrual Age of Menarche: 15 Questionnaire PHQ-9 Over the last 2 weeks, how often have you been bothered by any of the following problems? 1. Little interest or pleasure in doing things: not at all 2. Feeling down, depressed, or hopeless: not at all 3. Trouble falling or staying asleep, or sleeping too much: not at all 4. Feeling tired or having little energy: not at all 5. Poor appetite or overeating: not at all 6. Feeling bad about yourself - or that you are a failure or have let yourself or your family down: not at all 7. Trouble concentrating on things, such as reading the newspaper or watching television: not at all 8. Moving or speaking so slowly that other people could have noticed. Or the opposite - being so fidgety or restless that you have been moving around a lot more than usual: not at all 9. Thoughts that you would be better off or of hurting yourself in some way: not at all Total score: 0 Depression Screening Interpretation: Negative Depression Screening Done: Yes Source: Developed by Drs. Ernst Falcon, Massiel Ellis, Neil Desir and colleagues, with an educational vance from [employer]. Thrive Questionnaire Date Thrive assessed: 03/26/25 I am a: Patient What is your living situation today?: I have a steady place to live Within the past 12 months, did the food you bought not last and you didn't have the money to get more?: I choose not to answer this question Within the past 12 months, did you worry whether your food would run out before you got money to buy more?: I choose not to answer this question Do you have trouble paying for medicines?: Yes Do you have trouble getting transportation to medical appointments?: No Do you have trouble paying your heating and electricity bill?: No Do you have trouble taking care of your child, family member or friend?: No Do you have trouble with day-to-day activities such as bathing, preparing meals, shopping, managing finances, etc.?: No Are you currently unemployed and looking for a job?: No Are you interested in more education?: I choose not to answer this question Please select the resources that you would like help with: Paying for medicine Currently or been in a relationship where the following occur: I choose not to answer THRIVE Score: 0 AUDIT C Alcohol Use Questionnaire (AUDIT-C) 1. How often do you have a drink containing alcohol?: Never 2. How many drinks containing alcohol do you have on a typical day when you are drinking?: 1 or 2 3. How often do you have six or more drinks on one occasion?: Never Total Score: 0 QUE-7 AMB Questionnaire QUE-7 Date QUE - 7 assessed: 12/30/24 Feeling nervous, anxious, or on edge: 0 = Not at all Not being able to stop or control worryin = Not at all Worrying too much about different things: 0 = Not at all Trouble relaxin = Not at all Being so restless that it is hard to sit still: 0 = Not at all Becoming easily annoyed or irritable: 1 = Several days Feeling afraid as if something awful might happen: 0 = Not at all Total QUE-7 score (0-4 normal; 5-9 mild; 10-14 moderate; 15-21 severe): 1 Source: Developed by Drs. Ernst Falcon, Massiel Ellis, Neil Desir and colleagues, with an educational vance from [employer]. Physical exam (Primary Care) Vital Signs: Last Vital Signs Pulse 74 04/02/25 09:56 BP 118/62 04/02/25 09:56 Pulse Ox 98 04/02/25 09:56 Oxygen Delivery Method Room Air 04/02/25 09:56 BMI result Body Mass Index 28.9 Tobacco/Smoking Status: Tobacco use Status Tobacco use date assessed 12/30/24 04/02/25 09:58 Patient Tobacco Use Status Current someday Tobacco 04/02/25 10:02 Tobacco use type Cigarette 04/02/25 09:58 e-Cigarette/Vaping Use Never Used 04/02/25 09:58 PHQ-9: PHQ-9 Score PHQ-9: Total score 0 04/02/25 10:18 Depression Screening Interpretation: Negative Thrive Assessment: Date of Thrive Assessment Date Thrive assessed 03/26/25 04/02/25 09:58 Currently or been in a relationship where the following occur: I choose not to answer Const General: alert; No acute distress Eyes Conjunctivae: conjunctivae normal Resp Auscultation: clear to auscultation bilaterally Cardio Rate: regular rate Rhythm: regular rhythm GI Inspection: Yes normal to inspection Extrem General: Yes normal to inspection and No edema Coding Level of Care Code Est Pt Level 4 (09796) Complex EM visit Add On G2211 Diagnoses Tobacco abuse Z72.0 Atherosclerotic cardiovascular disease I25.10 COPD (chronic obstructive pulmonary disease) J44.9 Hypercholesterolemia E78.00 Hypothyroid E03.9 Obstructive sleep apnea (adult) (pediatric) G47.33 Assessment & Plan Assessment & Plan (1) Tobacco abuse: Code(s): Z72.0 - Tobacco use Category: Medical Plan: Patient is strongly advised to stop smoking. Discussed about lung cancer screening. still smoking (2) Atherosclerotic cardiovascular disease: Code(s): I25.10 - Atherosclerotic heart disease of [place] coronary artery without angina pectoris Category: Medical Plan: Control the cholesterol, weight, blood pressure, patient is advised strongly to stop smoking. On aspirin 81 mg once a day (3) COPD (chronic obstructive pulmonary disease): Comment: PFT 10/2022 mild Code(s): J44.9 - Chronic obstructive pulmonary disease, unspecified Category: Medical Plan: Patient is strongly advised to stop smoking! (4) Hypercholesterolemia: Code(s): E78.00 - Pure hypercholesterolemia, unspecified Category: Medical Plan: Avoid fried foods, chicken skin, eggs, butter margarine, pastries and meat. Be it pork or beef they have a lot of cholesterol patient was started on atorvastatin and advised to retest cholesterol (5) Hypothyroid: Code(s): E03.9 - Hypothyroidism, unspecified Category: Medical Plan: Advised to retest thyroid numbers (6) Obstructive sleep apnea (adult) (pediatric): Comment: ON CPAP Dr. Heath Code(s): G47.33 - Obstructive sleep apnea (adult) (pediatric) Category: Medical Plan: Continue to use the CPAP more than 4 hours a night and benefits from this. Plan History of Present Illness The patient is a 69-year-old female presenting for a follow-up of chronic medical conditions and preventive care. She manages her obstructive sleep apnea with a CPAP machine, although acknowledges need for regular usage improvement, particularly during travel. She has mild aortic stenosis, diagnosed in July 2022, requiring ongoing monitoring. Her hypercholesterolemia shows elevated LDL levels at 171 mg/dL compared to 96 mg/dL previously, and she is on atorvastatin therapy. The patient has COPD, using her albuterol inhaler three to four times per week, suggesting insufficient control of the condition, necessitating additional inhaler for regular use. She takes aspirin daily for her atherosclerotic cardiovascular disease. Her osteoarthritis of the right hip and multilevel degenerative changes of the lumbar spine contribute to musculoskeletal discomfort, particularly at L5-S1, where previous surgical interventions were performed. Immunization and cancer screening history reveal an annual lung cancer screening requirement via CAT scan, with previous imaging conducted in 2021. The patient works towards smoking cessation but experiences challenges in quitting fully, using nicotine patches sporadically. Health Maintenance - Discussed lung cancer screening with recommendation for annual low-dose CAT sc an - Mammogram is up-to-date - Colonoscopy last performed in 2015, due for repeat - Discussed preventive inhaler use for COPD management - Cholesterol management with atorvastatin therapy - Strongly advised smoking cessation due to cardiovascular and pulmonary disease risk - Previous pneumonia vaccination in 2021 - Tetanus vaccination up-to-date - Recommended shingles vaccination, available in pharmacies Social History - Smoking history and ongoing efforts with nicotine patches for cessation - Reports inconsistent CPAP usage during travel and weekends Review of Systems - Respiratory: Reports shortness of breath; using albuterol inhaler approximately three to four times a week - Musculoskeletal: Denies new joint pain but reports existing osteoarthritis and multilevel degenerative changes - Endocrine: Denies current thyroid symptoms but states hypercholesterolemia and hypothyroidism Physical Exam Results - Labs: Blood work in December showed normal counts except for elevated LDL at 171 mg/dL - Imaging: December hip X-ray showed mild osteoarthritis of the right hip; lumbar spine X-ray revealed multilevel degenerative changes Plan 1. I used this opportunity to psychologist counseling on smoking cessation, emphasizing cardiovascular and respiratory risk. Routine follow-ups are crucial for managing her chronic conditions and ensuring compliance with preventive screenings like colonoscopy and vaccinations.: Patient was informed and verbally consented to the use of an ambient scribe for clinic note documentation during this visit. Discussion Notes During our discussion, I stressed the necessity for adhering to CPAP therapy and introduced a daily inhaler for proactive COPD management. We reviewed her lipid panel indicating the need to continue on atorvastatin therapy. The patient is advised on appropriate lung cancer screening intervals, reinforcing the annual schedule. We outlined smoking cessation efforts and their implications on her current chronic conditions, weighing benefits of continued cessation efforts like nicotine patches. Preventive measures were considered, discussing vaccines and screenings, encouraging routine compliance. Patient Instructions - Use CPAP machine nightly and ensure usage exceeds four hours per night - Start using prescribed daily inhaler to control COPD - Continue atorvastatin for cholesterol management - Schedule and attend annual low-dose CAT scan for lung cancer screening - Strive to quit smoking using patches and other support methods - Plan for a follow-up blood test to check cholesterol and thyroid levels - Schedule a colonoscopy as part of regular cancer screening - Maintain routine physicals and health maintenance appointments Orders: Orders Comprehensive Met. Panel Today E78.00 - Pure hypercholesterolemia, unspecified Lipid Panel Today E78.00 - Pure hypercholesterolemia, unspecified UA CC w/rflx Micro + Cult Today E78.00 - Pure hypercholesterolemia, unspecified, R30.0 - Dysuria Complete Blood Count Auto Diff Today E78.00 - Pure hypercholesterolemia, unspecified Free T4 (Free Thyroxine) Today E78.00 - Pure hypercholesterolemia, unspecified Referrals Lung Cancer Screening Referral Z87.891 - Personal history of nicotine dependence Medications: New budesonide-formoterol 160-4.5 mcg/actuation (Symbicort) 2 puffs inhalation Q12H 10.2 grams 8RF J44.9 - Chronic obstructive pulmonary disease, unspecified
== END 2025-04-02 10:31 | disposition home or self-care (01) ==
LOC: HO.HMCH 09:53
PROVIDERS: PCP Internal Medicine; Visit Provider Internal Medicine
DX: Z72.0 Tobacco use (principal); I25.10 Atherosclerotic heart disease of native coronary artery without angina pectoris; J44.9 Chronic obstructive pulmonary disease, unspecified; E78.00 Pure hypercholesterolemia, unspecified; E03.9 Hypothyroidism, unspecified; G47.33 Obstructive sleep apnea (adult) (pediatric)

== ENCOUNTER 2025-04-02 09:52 | Outpatient (REF) | payer MEDICARE, SELFPAY ==
[2025-04-02 10:54] LABS: MANUAL DIFF FLAG NO
[2025-04-02 11:23] LABS: Basophils Absolute Auto 0.1 X10*3/uL (0.0-0.2); Basophils Percent Auto 0.7 % (0-2); Eosinophils Absolute Auto 0.1 X10*3/uL (0.0-0.4); Hematocrit 47.1 % (37.0-47.0); Hemoglobin 15.3 g/dl (12.0-16.0); Imm Gran Abs Auto 0.02 X10*3/uL (0.00-0.03); Imm Gran Pct Auto 0.3 % (0.0-0.4); Lymphocytes Percent Auto 28.2 % (20-40); Mean Corpuscular HGB Conc 32.5 g/dl (31.0-35.0); Mean Corpuscular Hemoglobin 30.8 pg (27.0-33.0); Mean Platelet Volume 8.8 fL (9.4-12.3); Monocytes Absolute Auto 0.6 X10*3/uL (0.1-1.2); Monocytes Percent Auto 8.2 % (2-11); Neutrophils Absolute Auto 4.2 x10*3/uL (2.0-8.3); Neutrophils Percent Auto 60.6 % (45-73); Platelet Count 191 X10*3/uL (160-400); Red Blood Count 4.96 X10*6/uL (4.20-5.50); Red Cell Distribution Width 12.8 % (11.0-16.0); White Blood Count 6.9 X10*3/uL (4.8-10.8)
[2025-04-02 11:59] LABS: Appearance Urine Clear; Color Urine Yellow; Glucose Urine UA Negative (Negative); Leukocyte Esterase Urine Small (1+) (Negative); Nitrite Urine Negative (Negative); UMIC TRIGGER UACC YES; Urine Blood Negative (Negative); Urine Ketones Negative (Negative); Urine Protein Negative (Neg-Trace)
[2025-04-02 12:16] LABS: Bacteria Urine None Seen (None Seen); Hyaline Casts Urine 0-2 /LPF (0-2); RBC Urine 0-2 /HPF (0-2); Squamous Epithelial Cell Urine 0-2 /HPF (0-2); UACC Culture Trigger YES; WBC Urine 0-5 /HPF (0-5)
[2025-04-02 12:36] LABS: Alanine Aminotransferase 34 U/L (0-31); Albumin Level 4.3 g/dL (3.5-5.0); Alkaline Phosphatase 113 U/L (39-117); Anion Gap 11 (12-20); Aspartate Amino Transferase 27 U/L (5-31); Bilirubin Total 0.5 mg/dL (0.0-1.0); Blood Urea Nitrogen 20 mg/dL (9-16); Calcium 9.7 mg/dL (8.4-10.2); Carbon Dioxide 31 mmol/L (22-29); Chloride 103 mmol/L (96-108); Cholesterol 171 mg/dL (<200); Estimated Glomerular Filt Rate > 60; Glucose Random 91 mg/dL (60-115); HDL Cholesterol 70 mg/dL (>40); LDL Cholesterol Calculated 77 mg/dL (<100); Potassium 4.5 mmol/L (3.3-5.1); Sodium 140 mmol/L (135-145); Triglycerides 120 mg/dL (<150)
[2025-04-02 12:43] LABS: Free T4 (Free Thyroxine) 0.86 ng/dL (0.71-1.85)
== END 2025-04-02 09:53 | disposition home or self-care (01) ==
LOC: HO.LAB 09:52
PROVIDERS: PCP Internal Medicine; Visit Provider Internal Medicine
DX: I25.10 Atherosclerotic heart disease of native coronary artery without angina pectoris (principal); J44.9 Chronic obstructive pulmonary disease, unspecified; E78.00 Pure hypercholesterolemia, unspecified; E03.9 Hypothyroidism, unspecified; G47.33 Obstructive sleep apnea (adult) (pediatric); R30.0 Dysuria; Z99.89 Dependence on other enabling machines and devices; Z72.0 Tobacco use
CPT/HCPCS: 36415; 80053; 80061; 81001; 84439; 85025; 87086; 96127; 99212

== ENCOUNTER 2025-06-03 14:59 | Outpatient (AMB) | payer MEDICARE, SELFPAY ==
--- NOTE | 2025-06-03 15:07 | MHC.OFFVIS ---
Vital Signs 06/03/25 15:08 06/03/25 15:31 Height 5 ft 3 in Weight 164 lb BMI 29.0 BP 102/55 L Blood Pressure Location Lt brachial Position Sitting Pulse 67 Pulse Oximetry (%) 91 L 97 Oxygen Delivery Method Room Air Room Air Intake Visit Reasons: Recall colo screening. Intake Note: Patient new consult for Colonoscopy recall, last Colonoscopy was 03/20/[address] Flores. Patient denies any GI issues. Supervisor Scrap Preparation Required: No Accompanied by: Self / Same As Patient Allergies No Known Allergies (No Known Allergies*) Allergy (Verified 04/02/25 09:57) HPI HPI Recall colo screening.: Details: Patient is a 69-year-old female with PMH of nicotine dependence, COPD, osteoporosis and TORIBIO. Josi is here for routine evaluation in preparation for her upcoming colonoscopy, recommended due to her grandfather's history of colon cancer. Her last colonoscopy was in March 2016. Josi reports no current gastrointestinal symptoms, including no constipation, diarrhea, abdominal pain, nausea, vomiting, or blood in stools. She denies any heartburn or difficulty swallowing. She mentions experiencing episodes of using a rescue inhaler more frequently due to workplace conditions but notes her primary care provider has prescribed an Symbicort inhaler she uses occasionally. Josi denies any significant weight changes, fever, fatigue, chest pain, or palpitations. Social hx: -Alcohol/Tobacco/Drug Use: Occasional alcohol consumption, uses nicotine patches irregularly, smokes about ? pack of cigarettes per day. No recreational drug use reported. 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 - family hx as below [facility] Medical History (Updated 06/03/25 @ 17:14 by Snow Mcneil CNP) Nicotine dependence, cigarettes, uncomplicated Personal history of nicotine dependence Hypertriglyceridemia Overweight (BMI 25.0-29.9) History of seizures Hypothyroid Lumbar radiculopathy Surgical History History of tubal ligation History of colonoscopy History of appendectomy History of hysterectomy History of lumbar surgery History of cholecystectomy History of meniscectomy of left knee Family History Sister Skin cancer Father Lung cancer Mother Lung cancer Social History Housing: Apartment Alcohol intake: current Alcohol intake frequency: holidays/special occasions only Patient Tobacco Use Status: Current someday Tobacco user Tobacco use type: Cigarette Cigarette Packs Per Day: 1 Cigarettes Per Day: 4 Years Smoked: (onset 15yo, 1/2-1ppd x 53yrs, 37pyh) e-Cigarette/Vaping Use: Never Used Second Hand Smoke Exposure: No service: No Current occupational status: employed Cognitive needs: No Hearing needs: No Vision needs: Yes (glasses ) Female Reproductive History Menstrual Age of Menarche: 15 Review of Systems Const Reports as per HPI ENT Reports as per HPI Card Reports as per HPI Resp Reports as per HPI GI Reports as per HPI Reports as per HPI Physical Exam Vital Signs: Last Vital Signs Pulse 67 06/03/25 15:08 BP 102/55 L 06/03/25 15:08 Pulse Ox 91 L 06/03/25 15:08 Oxygen Delivery Method Room Air 06/03/25 15:08 BMI result Body Mass Index 29.0 Const General: healthy appearing, no acute distress and well developed Nutritional Appearance: average body habitus Orientation/consciousness: patient oriented x3 HEENT Head: Yes normal to inspection, Yes normocephalic and Yes atraumatic Face and sinus: Yes normal facial exam Eyes General: appearance normal, both eyes and all related structures Neck Neck: Yes normal visual inspection Resp Effort & Inspection: normal respiratory effort, able to speak in complete sentences, no tracheal deviation and symmetric chest movement Auscultation: clear to auscultation bilaterally Cardio Jugular venous distension: no JVD Rate: regular rate Rhythm: regular rhythm Heart sounds: S1 normal heart sound present, S2 normal heart sound present, no gallops and no murmurs GI Inspection: Yes normal to inspection, No distended and Yes obesity Palpation (GI): Soft to palpation, not firm, nontender and No hepatosplenomegaly present Auscultation: normal bowel sounds Neuro General: patient oriented x3 Gait exam (Neuro): Normal gait present Psych Appearance: grossly normal Mental Status: mental status grossly normal Speech and movement: Normal speech and movement present Affect: normal affect Attitude: cooperative Thought process: Normal thought process present Thought content: Normal thought content present Insight: Good insight present (Psych) Judgement: Good judgement present (Psych) Assessment & Plan Assessment & Plan (1) Colon cancer screening: Comment: 03/20/2016 colonoscopy complete with excellent prep- normal examination. recommendations for repeat in 7 years due to second-degree relative(maternal grandfather) with colon cancer. Code(s): Z12.11 - Encounter for screening for malignant neoplasm of colon Category: Medical Plan: Routine colonoscopy screening for family history of colon cancer (maternal grandfather). Additional Tests: Cardiac clearance is required due to previous bradycardic episode during colonoscopy. Medications: -prescriptions for laxative tablets and MiraLax sent to pharmacy; instructions for Gatorade purchase and clear liquid diet given. -Understands ASA will need to be held days prior to procedure. Nurse to review med holds per protocol. Patient educated on scheduling process, procedure preparation, including avoiding certain foods and ensuring clear liquid intake Advised on necessity for ride post-procedure due to sedation. Plan Follow-up as needed after colonoscopy or sooner if needed Time: I spent a total of 30 minutes on the date of encounter which includes: Preparing to see the patient (reviewed previous documentation, test results and medical history) Performing a medically appropriate exam and/or evaluation Ordering medications, tests, and procedures Documenting clinical information in the health record Medications: New bisacodyl Take four tablets once for 1 day per colonoscopy instructions 5 mg PO ONCE 4 tabs 0RF 1 day polyethylene glycol 3350 (Miralax) per colonoscopy prep instructions 238 grams PO ONCE 238 grams 0RF Coding Level of Care Code New Pt New Pt Level 3 (52228) Patient Type New Diagnoses Colon cancer screening Z12.11
[2025-06-03 15:08] VITALS: BP 102/55; PULSE 67; O2SAT 91; BMI 29.0
[2025-06-03 15:31] VITALS: O2SAT 97
== END 2025-06-03 15:37 | disposition home or self-care (01) ==
LOC: HO.HGI 15:00
PROVIDERS: PCP Internal Medicine; Visit Provider Nurse Practitioner Family
DX: Z12.11 Encounter for screening for malignant neoplasm of colon (principal)
CPT/HCPCS: 99024

== ENCOUNTER → 2025-06-03 14:59 | Outpatient (BNVA) | payer MEDICARE, SELFPAY | PROVIDERS: PCP Internal Medicine; Visit Provider Nurse Practitioner Family | DX: Z12.11 Encounter for screening for malignant neoplasm of colon (principal) | CPT/HCPCS: 99212 ==

== ENCOUNTER 2025-06-04 11:09 | Outpatient (AMB) | payer MEDICARE, SELFPAY ==
[2025-06-04 11:16] VITALS: BP 122/74; PULSE 70; TEMP 36.3; O2SAT 95; BMI 29.0
--- NOTE | 2025-06-04 11:16 | AM.OFFVISMDC ---
Intake Vital Signs 06/04/25 11:16 Height 5 ft 3 in Weight 164 lb BMI 29.0 BP 122/74 Blood Pressure Location Lt brachial Position Sitting Pulse 70 Pulse Source Pulse Oximeter Temp 97.3 F Temp Source Temporal Artery Scan Pulse Oximetry (%) 95 Oxygen Delivery Method Room Air Intake Visit Reasons: AWV G0438 Allergies No Known Allergies (No Known Allergies*) Allergy (Verified 06/04/25 11:16) Medication List - Last Reconciled 06/04/25 by Shell Greenfield MD albuterol sulfate 90 mcg/actuation (Ventolin HFA) 2 puffs inhalation Q6H PRN aspirin 81 mg PO DAILY atorvastatin 80 mg PO DAILY bisacodyl 5 mg PO ONCE 1 day budesonide-formoterol 160-4.5 mcg/actuation (Symbicort) 2 puffs inhalation Q12H cetirizine 10 mg PO DAILY PRN meloxicam 15 mg PO DAILY nicotine 1 patch transdermal DAILY nicotine (polacrilex) 2 mg buccal Q2H PRN polyethylene glycol 3350 (Miralax) 238 grams PO ONCE HPI AWV G0438 HPI Details [facility] [place] [facility] [place] [facility] [place] Mathew coto [facility] Medical History Nicotine dependence, cigarettes, uncomplicated Personal history of nicotine dependence Hypertriglyceridemia Overweight (BMI 25.0-29.9) History of seizures Hypothyroid Lumbar radiculopathy Surgical History History of tubal ligation History of colonoscopy History of appendectomy History of hysterectomy History of lumbar surgery History of cholecystectomy History of meniscectomy of left knee Family History Sister Skin cancer Father Lung cancer Mother Lung cancer Social History (Updated 06/04/25 @ 11:56 by Shell Greenfield MD) Housing: Apartment Alcohol intake: current Alcohol intake frequency: holidays/special occasions only Comment: holidays Patient Tobacco Use Status: Current someday Tobacco user Tobacco use type: Cigarette Cigarette Packs Per Day: 1 Cigarettes Per Day: 15 Years Smoked: (onset 15yo, 1/2-1ppd x 51yrs, 37pyh) e-Cigarette/Vaping Use: Never Used Second Hand Smoke Exposure: No service: No Current occupational status: employed Cognitive needs: No Hearing needs: No Vision needs: Yes (glasses ) Female Reproductive History Menstrual Age of Menarche: 15 Questionnaire Medicare Wellness Checkup [age] What gender do you identify with?: female During the past 4 weeks, how much have you been bothered by emotional problems such as feeling anxious, depressed, irritable, sad or downhearted, and blue?: slightly During the past 4 weeks, has your physical & emotional health limited your social activities with family, friends, neighbors, or groups?: not at all During the past 4 weeks, how much bodily pain have you generally had?: mild pain During the past 4 weeks, was someone available to help you if you needed & wanted help?: no, not at all During the past 4 weeks, what was the hardest physical activity you could do for at least 2 minutes?: very light Can you get to places out of walking distance without help? (For eg., can you travel alone on buses, taxis or drive your car?): Yes Can you go shopping for groceries or clothes without someone's help?: Yes Can you prepare your own meals?: Yes Can you do your housework without help?: Yes Because of any health problems, do you need the help of another person with your personal care needs such as eating, bathing, dressing or getting around the house?: No Can you handle your own money without help?: Yes During the past 4 weeks, how would you rate your health in general?: good During the past 4 weeks how have things been going for you?: very well; could hardly better Are you having difficulties driving your car?: no Do you always fasten your seat belt when you are in a car?: yes, usually During past 4 weeks, have you been bothered by the following: never: Falling or dizzy when standing up, Sexual problems?, Trouble eating well?, Teeth or denture problems? and Problems using the telephone? and sometimes: Tiredness or fatigue? Have you fallen 2 or more times in the past year?: No Are you afraid of falling?: Yes Are you a smoker?: yes, and I might quit During the past 4 weeks, how many drinks of wine, beer, or other alcoholic beverages did you have?: no alcohol at all Do you exercise for about 20 minutes 3 or more times a week?: yes, most of the time Have you been given information to help with the following?: no: Hazards in your house that might hurt you? and no: Keeping track of your medications? How often do you have trouble taking medicines the way you have been told to take them?: I always take medicine as prescribed How confident are you that you can control & manage most of your health problems?: very confident What is your race?: White PHQ-9 Over the last 2 weeks, how often have you been bothered by any of the following problems? 1. Little interest or pleasure in doing things: not at all 2. Feeling down, depressed, or hopeless: not at all 3. Trouble falling or staying asleep, or sleeping too much: not at all 4. Feeling tired or having little energy: several days 5. Poor appetite or overeating: not at all 6. Feeling bad about yourself - or that you are a failure or have let yourself or your family down: not at all 7. Trouble concentrating on things, such as reading the newspaper or watching television: not at all 8. Moving or speaking so slowly that other people could have noticed. Or the opposite - being so fidgety or restless that you have been moving around a lot more than usual: not at all 9. Thoughts that you would be better off or of hurting yourself in some way: not at all Total score: 1 Depression Screening Interpretation: Negative Depression Screening Done: Yes 92237 - PHQ-9 Billing: Yes Source: Developed by Drs. Ernst Falcon, Massiel Ellis, Neil Desir and colleagues, with an educational vance from [employer]. Review of Systems Const Denies poor appetite and Denies weakness Eyes Denies no additional complaints ENT Reports Normal hearing present, Denies dizziness, Denies nasal congestion, Denies tinnitus and Denies sore throat Card Denies chest pain, Denies syncope, Denies rapid heart rate and Denies dyspnea Resp Denies cough and Denies dyspnea GI Denies change in stool character, Reports constipation, Denies diarrhea, Denies nausea and Denies vomiting Denies urinary frequency, Denies difficulty voiding and Denies dysuria Neuro Reports Normal hearing present, Denies confusion, Denies dizziness, Denies syncope and Denies weakness Psych Denies confusion Physical Exam Vital Signs: Last Vital Signs Temp 97.3 F 06/04/25 11:16 Pulse 70 06/04/25 11:16 BP 122/74 06/04/25 11:16 Pulse Ox 95 06/04/25 11:16 Oxygen Delivery Method Room Air 06/04/25 11:16 BMI result Body Mass Index 29.0 Const General: alert and awake; No confusion Orientation/consciousness: No confusion HEENT Head: Yes normocephalic Ears: external ears normal and TM's normal bilaterally Face and sinus: Yes normal facial exam Mouth: moist mucous membranes Throat: Yes tonsils normal Eyes Conjunctivae: conjunctivae normal Pupils: Equal, round and reactive pupils present and Pupil accommodation reflex normal Direct Ophthalmoscopy: normal light reflex Neck Neck: No lymphadenopathy Thyroid: Thyroid normal Chest Chest palpation & inspection: normal inspection of the chest Resp Effort & Inspection: normal respiratory effort and no audible wheezes Auscultation: clear to auscultation bilaterally, no crackles, no wheezes and lung sounds not diminished Cardio Rate: regular rate Rhythm: regular rhythm Peripheral pulses: radial pulses present and dorsalis pedis present GI Palpation (GI): no masses Auscultation: normal bowel sounds and normoactive bowel sounds Rectal Exam - Female: deferred Skin General skin exam: no rashes or lesions noted Rashes: no rashes Neuro General: deep tendon reflexes 2+ bilaterally and No confusion Cranial nerves: Yes Equal, round and reactive pupils present, Yes Midline tongue present, Yes Normal hearing present and Yes Ability to bilaterally elevate shoulders present Cognition (Neuro): normal cognition Gait exam (Neuro): Normal gait present Motor exam (neuro): 5/5 motor strength present throughout Deep tendon reflexes (DTR's): Right brachioradialis reflex intensity grade: 2+, Left brachioradialis reflex intensity grade: 2+, Right patellar reflex intensity grade: 2+ and Left patellar reflex intensity grade: 2+ Extrem General: No edema Results AMB Urinalysis, Automated UA Leukoctes 500 Judy/uL Last Edit by Birgit Cintron CMA on 06/04/25 12:59 UA Nitrite Negative Last Edit by Birgit Cintron CMA on 06/04/25 12:59 UA Urobilinogen 0.2 mg/dL Last Edit by Birgit Cintron, TARA on 06/04/25 12:59 UA Protein 0 mg/dL Last Edit by Birgit Cintron, CARTOGRAPHIC AIDE on 06/04/25 12:59 UA pH 6.0 Last Edit by Birgit Cintron, [facility] on 06/04/25 12:59 UA Blood 0 Edmond/uL Last Edit by Birgit Cintron, CARTOGRAPHIC AIDE on 06/04/25 12:59 UA Specific [place] 1.015 Last Edit by Birgit Cintron, [facility] on 06/04/25 12:59 UA Ketone Negative Last Edit by Birgit Cintron, [facility] on 06/04/25 12:59 UA Bilirubin 0 mg/dL Last Edit by Birgit Cintron, [facility] on 06/04/25 12:59 UA Glucose 0 mg/dL Last Edit by Birgit Cintron, CARTOGRAPHIC AIDE on 06/04/25 12:59 Results Reviewed Results Reviewed: Laboratory Last Values Urine pH (Auto) 6.0 06/04/25 12:58 Specific [place] (Auto) 1.015 06/04/25 12:58 Urine Protein (Auto) 0 mg/dL 06/04/25 12:58 Glucose (UA)(Auto) 0 mg/dL 06/04/25 12:58 Urine Ketones (Auto) Negative 06/04/25 12:58 Urine Blood (Auto) 0 Edmond/uL 06/04/25 12:58 Urine Nitrite (Auto) Negative 06/04/25 12:58 Urine Bilirubin (Auto) 0 mg/dL 06/04/25 12:58 Urine Urobilinogen (Auto) 0.2 mg/dL 06/04/25 12:58 Leukocyte Esterase (Auto) 500 Judy/uL 06/04/25 12:58 Assessment & Plan Assessment & Plan (1) Medicare annual wellness visit, subsequent: Code(s): Z00.00 - Encounter for general adult medical examination without abnormal findings Plan: Patient is advised to eat healthy, keep well hydrated, keep active and have adequate sleep. (2) Overweight (BMI 25.0-29.9): Code(s): E66.3 - Overweight Plan: Diet and exercise (3) Osteoporosis: Code(s): M81.0 - Age-related osteoporosis without current pathological fracture Plan: Patient is due for bone density (4) Hypercholesterolemia: Code(s): E78.00 - Pure hypercholesterolemia, unspecified Plan: Avoid fried foods, chicken skin, eggs, butter margarine, pastries and meat. Be it pork or beef they have a lot of cholesterol on atorvastatin 80 mg once a day LDL goal of less than 70 and triglyceride of less than 150 (5) Atherosclerotic cardiovascular disease: Code(s): I25.10 - Atherosclerotic heart disease of [place] coronary artery without angina pectoris Plan: Control the cholesterol, weight, blood pressure, on aspirin 81 mg once a day (6) COPD (chronic obstructive pulmonary disease): Comment: PFT 10/2022 mild Code(s): J44.9 - Chronic obstructive pulmonary disease, unspecified Plan: Patient is advised strongly to stop smoking continue with albuterol inhaler as needed (7) Obstructive sleep apnea (adult) (pediatric): Comment: ON CPAP Dr. Heath Code(s): G47.33 - Obstructive sleep apnea (adult) (pediatric) Plan: Continue to use the CPAP more than 4 hours a night and benefits from the. (8) Nicotine dependence, cigarettes, uncomplicated: Comment: (onset 15yo, 1/-1ppd x 54yrs, 40pyh, + fam hx lung ca) Code(s): F17.210 - Nicotine dependence, cigarettes, uncomplicated Plan: Patient is strongly advised to stop smoking (9) Mild aortic stenosis: Comment: July 2022The left ventricular systolic function is normal. The calculated ejection fraction is 69% by biplane method. - The inferoseptal wall is hypokinetic. - At most mild aortic stenosis. 12/2024 The left ventricular systolic function is normal. The calculated ejection fraction is 66% by biplane method. - The basal inferolateral segment is hypokinetic. - Aortic valve sclerosis, but no significant stenosis. Code(s): I35.0 - Nonrheumatic aortic (valve) stenosis (10) Hearing difficulty: Code(s): H91.90 - Unspecified hearing loss, unspecified ear (11) Foul smelling urine: Code(s): R82.90 - Unspecified abnormal findings in urine Plan History of Present Illness The patient is a 69-year-old female presenting for an annual wellness visit and management of chronic conditions. The patient has a history of obstructive sleep apnea, managed with CPAP therapy, which she uses for more than 4 hours a night and reports benefiting from it. She also has mild aortic stenosis diagnosed in 2015, with no recent changes reported. The patient has been diagnosed with hypothyroidism and hypercholesterolemia, both of which are currently managed with medication. Her LDL cholesterol has improved to 77 mg/dL, although the goal is less than 70 mg/dL. She has a history of chronic obstructive pulmonary disease (COPD), described as mild, and uses an albuterol inhaler as needed, particularly during heatwaves. The patient reports wheezing and has been advised to use Symbicort for better management. Osteoporosis is another condition she manages, with the last bone density test conducted in October 2022, showing decreased bone density. She is due for a follow-up bone density test. The patient has lumbar degenerative disc disease and reports using meloxicam for pain management, which she takes with her other morning medications. She has a history of smoking, currently smoking less than a pack a day, and has been advised to quit. She reports stress as a factor in her smoking habits. Preventative care measures include a colonoscopy, which is due, and a mammogram, which is up to date as of February 2025. She is also considering a shingles vaccine, although she expresses concern about the cost and discomfort associated with it. 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 - Substance Use: History of smoking, currently less than a pack a day, advised to quit - Exercise: Uses CPAP regularly, reports benefit Review of Systems - General: Denies recent falls or unsteadiness - Cardiovascular: Denies chest pain, reports history of mild aortic stenosis - Respiratory: Reports wheezing, denies dyspnea on exertion - Gastrointestinal: Denies heartburn, reports normal bowel movements - Neurological: Reports episodes of choking sensation with liquid, denies dizziness - Musculoskeletal: Reports lumbar degenerative disc disease - ENT: Reports hearing difficulties, considering testing Physical Exam General: Cooperative, overweight, healthy appearing, comfortable, no acute distress and well developed Orientation: Patient oriented x3 Limitations: No limitations Head: Normal to inspection Ears: Hearing requires testing due to reported issues Nose: Normal external nose present Face and sinus: Normal facial exam Eyes: Needs examination, patient reports difficulty getting an appointment Neck: Normal visual inspection and Yes full ROM Respiratory: Wheezing noted, normal respiratory effort and able to speak in complete sentences. Clear to auscultation bilaterally Cardiovascular: Regular rate and rhythm. Normal S1 and S2 GI: Normal to inspection. Soft to palpation and nontender Skin: No rashes or lesions noted Neuro: Patient oriented x3 Extremities: Normal to inspection, patient reports feeling of losing strength in wrists, no numbness noted Results - Labs: Blood work in March 2025 showed normal blood count, normal platelet count, normal electrolytes, normal renal function, normal blood sugar, normal liver function, LDL cholesterol improved to 77 mg/dL - Tests: Thyroid function normal as of December 2024 - Tests: Bone density test in October 2022 showed decreased bone density Plan The patient is advised to continue using CPAP therapy for obstructive sleep apnea, as it provides significant benefit. For hypercholesterolemia, the patient is on atorvastatin 80 mg daily, with a target LDL cholesterol level of less than 70 mg/dL. Smoking cessation is strongly recommended, and the patient is encouraged to reduce stress as a contributing factor to smoking habits. The patient is advised to use Symbicort for better management of COPD symptoms, particularly during heatwaves. A follow-up bone density test is recommended to monitor osteoporosis, and the patient is due for a colonoscopy for colorectal cancer screening. The patient is also considering a shingles vaccine, with discussions around cost and discomfort. Patient was informed and verbally consented to the use of an ambient scribe for clinic note documentation during this visit. Discussion Notes During the visit, I discussed the importance of continuing CPAP therapy for obstructive sleep apnea and maintaining cholesterol management with atorvastatin to achieve the LDL goal. We talked about the need for smoking cessation and the potential benefits of using Symbicort for COPD management. I recommended scheduling a follow-up bone density test and a colonoscopy for preventative care. We also discussed the shingles vaccine, addressing concerns about cost and discomfort. Patient Instructions - Continue using CPAP machine nightly for sleep apnea. - Take atorvastatin 80 mg daily to manage cholesterol levels. - Strongly consider quitting smoking; seek support if needed. - Use Symbicort as prescribed for COPD symptoms, especially during heatwaves. - Schedule and attend follow-up bone density test and colonoscopy. - Consider getting the shingles vaccine; discuss any concerns with your healthcare provider. Called and sent in Bactrim antibiotic for urinary tract infection. Advised to increase oral fluids. Orders: Orders AMB Urinalysis Automated Today R82.90 - Unspecified abnormal findings in urine, Z13.9 - Encounter for screening, unspecified XR DEXA axial skeleton Today M81.0 - Age-related osteoporosis without current pathological fracture Referrals Speech and Hearing Referral H91.90 - Unspecified hearing loss, unspecified ear Medications: New sulfamethoxazole-trimethoprim 800-160 mg (Bactrim DS) 1 tab PO BID 14 tabs 0RF Refilled albuterol sulfate 90 mcg/actuation (Ventolin HFA) 2 puffs inhalation Q6H PRN 8.5 grams 0RF shortness of breath or wheezing J44.9 - Chronic obstructive pulmonary disease, unspecified meloxicam 15 mg PO DAILY 30 tabs 2RF M25.551 - Pain in right hip cetirizine 10 mg PO DAILY PRN 90 tabs 2RF allergy symptoms H91.90 - Unspecified hearing loss, unspecified ear Quality Reporting (2019) Depression/Bipolar (159/160/161/177) PHQ-9: Total score: 1 Coding Level of Care Code Medicare Subsequent (G0439) Diagnoses Medicare annual wellness visit, subsequent Z00.00 Overweight (BMI 25.0-29.9) E66.3 Osteoporosis M81.0 Hypercholesterolemia E78.00 Atherosclerotic cardiovascular disease I25.10 COPD (chronic obstructive pulmonary disease) J44.9 Obstructive sleep apnea (adult) (pediatric) G47.33 Nicotine dependence, cigarettes, uncomplicated F17.210 Mild aortic stenosis I35.0 Hearing difficulty H91.90 Foul smelling urine R82.90 Additional Codes PHQ-9 - 93064 - PHQ-9 Billing: Yes ([id number])
== END 2025-06-04 12:14 | disposition home or self-care (01) ==
LOC: HO.HMCH 11:10
PROVIDERS: PCP Internal Medicine; Visit Provider Internal Medicine
DX: Z00.00 Encounter for general adult medical examination without abnormal findings (principal); E66.3 Overweight; Z68.29 Body mass index [BMI] 29.0-29.9, adult; J44.9 Chronic obstructive pulmonary disease, unspecified; M81.0 Age-related osteoporosis without current pathological fracture; E78.00 Pure hypercholesterolemia, unspecified; I25.10 Atherosclerotic heart disease of native coronary artery without angina pectoris; G47.33 Obstructive sleep apnea (adult) (pediatric); F17.210 Nicotine dependence, cigarettes, uncomplicated; I35.0 Nonrheumatic aortic (valve) stenosis; H91.93 Unspecified hearing loss, bilateral; R82.90 Unspecified abnormal findings in urine

== ENCOUNTER → 2025-06-04 11:09 | Outpatient (BNVA) | payer MEDICARE, SELFPAY | PROVIDERS: PCP Internal Medicine; Visit Provider Internal Medicine | DX: Z00.00 Encounter for general adult medical examination without abnormal findings (principal); E66.3 Overweight; Z68.29 Body mass index [BMI] 29.0-29.9, adult; E78.00 Pure hypercholesterolemia, unspecified; M81.0 Age-related osteoporosis without current pathological fracture; I25.10 Atherosclerotic heart disease of native coronary artery without angina pectoris; I35.0 Nonrheumatic aortic (valve) stenosis; J44.9 Chronic obstructive pulmonary disease, unspecified; H91.90 Unspecified hearing loss, unspecified ear; G47.33 Obstructive sleep apnea (adult) (pediatric); R82.90 Unspecified abnormal findings in urine; F17.210 Nicotine dependence, cigarettes, uncomplicated; Z71.6 Tobacco abuse counseling; Z71.3 Dietary counseling and surveillance | CPT/HCPCS: 81003; 96127 ==

== ENCOUNTER 2025-06-08 14:24 | Outpatient (AMB) | payer MEDICARE, SELFPAY ==
[2025-06-08 14:59] VITALS: BP 124/72; PULSE 65; BMI 29.3
--- NOTE | 2025-06-08 14:59 | MHC.OFFVIS ---
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 Allergies No Known Allergies (No Known Allergies*) Allergy (Verified 06/08/25 15:02) Medication List - Last Reconciled 06/08/25 by Ward Singh NP albuterol sulfate 90 mcg/actuation (Ventolin HFA) 2 puffs inhalation Q6H PRN aspirin 81 mg PO DAILY atorvastatin 80 mg PO DAILY bisacodyl 5 mg PO ONCE 1 day budesonide-formoterol 160-4.5 mcg/actuation (Symbicort) 2 puffs inhalation Q12H cetirizine 10 mg PO DAILY PRN meloxicam 15 mg PO DAILY nicotine 1 patch transdermal DAILY nicotine (polacrilex) 2 mg buccal Q2H PRN polyethylene glycol 3350 (Miralax) 238 grams PO ONCE sulfamethoxazole-trimethoprim 800-160 mg (Bactrim DS) 1 tab PO BID HPI Comments Details: This is a 69-year-old female patient coming in for an overdue follow-up visit, who is here for a preop cardiac Vasc score. Patient with a history of hyperlipidemia, mild aortic stenosis, coronary artery disease, sleep apnea, and smoker. Patient states that in her previous colonoscopy patient had a bradycardiac episode and therefore for her next colonoscopy, patient needs a cardiac clearance. Patient reports that lately she has been having some shortness of breath with exertion otherwise no associated chest pain, palpitations, dizziness, orthopnea, PND, leg edema, presyncope, or syncope. Patient states that she is compliant with all her medications. Unfortunately, patient continues to smoke and is stating noncompliance with her CPAP therapy. [facility] Medical History Nicotine dependence, cigarettes, uncomplicated Personal history of nicotine dependence Hypertriglyceridemia Overweight (BMI 25.0-29.9) History of seizures Hypothyroid Lumbar radiculopathy Surgical History History of tubal ligation History of colonoscopy History of appendectomy History of hysterectomy History of lumbar surgery History of cholecystectomy History of meniscectomy of left knee Family History Sister Skin cancer Father Lung cancer Mother Lung cancer Social History Housing: Apartment Alcohol intake: current Alcohol intake frequency: holidays/special occasions only Comment: holidays Patient Tobacco Use Status: Current someday Tobacco user Tobacco use type: Cigarette Cigarette Packs Per Day: 1 Cigarettes Per Day: 15 Years Smoked: (onset 15yo, 1/2-1ppd x 53yrs, 37pyh) e-Cigarette/Vaping Use: Never Used Second Hand Smoke Exposure: No service: No Current occupational status: employed Cognitive needs: No Hearing needs: No Vision needs: Yes (glasses ) Female Reproductive History Menstrual Age of Menarche: 15 Review of Systems ENT Reports dizziness Card Denies chest pain, Denies chest pain at rest, Denies chest pain with activity, Denies rapid heart rate, Denies pedal edema, Denies edema, Denies leg edema, Denies lightheadedness, Denies palpitations, Denies dyspnea, Denies dyspnea on exertion and Denies orthopnea Resp Denies cough, Denies dyspnea and Denies dyspnea on exertion GI Denies hematochezia and Denies change in stool character Musc Denies abnormal gait, Reports limited range of motion, Reports muscle cramps, Denies muscle weakness, Denies numbness, Denies radiating pain into limb, Denies stiffness and Denies tingling Neuro Denies abnormal gait, Reports dizziness, Denies numbness and Denies tingling Endo Denies palpitations Physical Exam Vital Signs: Last Vital Signs Pulse 65 06/08/25 14:59 BP 124/72 06/08/25 14:59 BMI result Body Mass Index 29.3 Const General: cooperative, healthy appearing, comfortable and no acute distress Orientation/consciousness: patient oriented x3 HEENT Head: Yes normal to inspection Neck Neck: Yes normal visual inspection, Yes trachea midline and Yes supple Chest Chest palpation & inspection: normal inspection of the chest Resp Effort & Inspection: normal respiratory effort Auscultation: clear to auscultation bilaterally, no crackles, no rales, no rhonchi and no wheezes Cardio Jugular venous distension: no JVD Palpation: normal PMI Rate: regular rate Rhythm: regular rhythm Heart sounds: S1 normal heart sound present, S2 normal heart sound present, no click, no gallops, Murmur heart sound present systolic at the right sternal border and no rubs Peripheral pulses: Peripheral pulses 2+ throughout GI Inspection: Yes normal to inspection Palpation (GI): Soft to palpation Auscultation: normal bowel sounds Skin General skin exam: no rashes or lesions noted Neuro General: patient oriented x3 Extrem General: Yes normal to inspection, No no pedal edema and No calf tenderness Psych Appearance: grossly normal Mental Status: mental status grossly normal Speech and movement: Normal speech and movement present Office Procedures EKG Details: EKG today showed normal sinus rhythm, rate 65 beats per minute, right atrial enlargement, right superior axis deviation, possible anterior infarct given poor R-wave progression, [place], [place]. [id number], Complete Assessment & Plan Assessment & Plan (1) Atherosclerotic cardiovascular disease: Code(s): I25.10 - Atherosclerotic heart disease of [place] coronary artery without angina pectoris Category: Medical (2) Shortness of breath: Code(s): R06.02 - Shortness of breath Category: Medical (3) Mild aortic stenosis: Comment: Code(s): I35.0 - Nonrheumatic aortic (valve) stenosis Category: Medical (4) Obstructive sleep apnea (adult) (pediatric): Comment: ON CPAP Dr. Heath Code(s): G47.33 - Obstructive sleep apnea (adult) (pediatric) Category: Medical (5) Preop cardiovascular exam: Code(s): Z01.810 - Encounter for preprocedural cardiovascular examination Plan 01/13/2025-echo study showed a normal LV systolic function with an ejection fraction at 66%, with hypokinetic basal inferolateral segment and aortic valve sclerosis. Given her ongoing shortness of breath with exertion, we will proceed with a myocardial perfusion study look for any ischemic changes. Patient states she is now compliant with her statins and her most recent LDL at 77 significantly improved from 177. Continue high-dose statin therapy and low-dose baby aspirin. Blood pressure within normal limits. Emphasized on the need to being compliant with her CPAP therapy for cardiovascular as well as overall well-being. Emphasized on the need for complete smoking cessation. Advised heart healthy diet, regular exercise, med compliance, and management of vascular risk factors. Advised to seek ER care in case of exertional chest pain not resolved with rest. Follow-up after completion of the test. In the interim, patient will call the office with any concerns or change in symptoms. We will add to this note in regards to cardiac clearance for her colonoscopy. This note was generated using voice recognition software. While every effort has been made to ensure accuracy and proper diabetes nurse, there may be occasional errors that could affect the content or meaning of the described symptoms. Orders: Orders NM cardiolite stress test Today I25.10 - Atherosclerotic heart disease of [place] coronary artery without angina pectoris, R06.02 - Shortness of breath AMB EKG-In Office Today Z01.810 - Encounter for preprocedural cardiovascular examination CA stress test Today I25.10 - Atherosclerotic heart disease of [place] coronary artery without angina pectoris, R06.02 - Shortness of breath Coding Level of Care Code Est Pt Level 4 (00116) Complex EM visit Add On G2211 Diagnoses Atherosclerotic cardiovascular disease I25.10 Shortness of breath R06.02 Mild aortic stenosis I35.0 Obstructive sleep apnea (adult) (pediatric) G47.33 Preop cardiovascular exam Z01.810 CPT Codes EKG - CPT: [id number], Complete ([id number]) Time Spent (min) 32 Comment Time spent in reviewing the chart, test results, assessment, counseling and documentation.
== END 2025-06-08 15:27 | disposition home or self-care (01) ==
LOC: HO.HCS 14:25
PROVIDERS: PCP Internal Medicine
DX: I25.10 Atherosclerotic heart disease of native coronary artery without angina pectoris (principal); R06.02 Shortness of breath; I35.0 Nonrheumatic aortic (valve) stenosis; G47.33 Obstructive sleep apnea (adult) (pediatric); Z01.810 Encounter for preprocedural cardiovascular examination
CPT/HCPCS: 93010; 99214; G2211

== ENCOUNTER → 2025-06-08 14:24 | Outpatient (BNVA) | payer MEDICARE, SELFPAY | PROVIDERS: PCP Internal Medicine | DX: Z01.810 Encounter for preprocedural cardiovascular examination (principal); I25.10 Atherosclerotic heart disease of native coronary artery without angina pectoris; R06.02 Shortness of breath; I35.0 Nonrheumatic aortic (valve) stenosis; G47.33 Obstructive sleep apnea (adult) (pediatric); I51.7 Cardiomegaly; R94.31 Abnormal electrocardiogram [ECG] [EKG] | CPT/HCPCS: 93005; 99212 ==

== ENCOUNTER 2025-07-23 15:36 | Outpatient (REF) | payer MEDICARE, SELFPAY ==
--- NOTE | ~2025-07-23 | CT_ITS ---
CLINICAL HISTORY: F17.210 - Nicotine dependence, cigarettes, uncomplicated CT lung cancer screening (LDCT) Comparison: CT/SR - CT LUNG SCREENING - 08/31/22 13:56 EDT Technique: Axial CT images of the chest using low-dose technique. Effective radiation dose total: DLP 70.3 mGycm, CTDIvol 2.1 mGy. Findings: Unchanged scattered calcified and noncalcified pulmonary nodules throughout the lungs measuring up to 6 mm in size. No new pulmonary nodules are identified. No focal areas of consolidation. No pleural effusion or pneumothorax. Ihrs-zx-hjmnkuum calcification of the thoracic aorta. Mild coronary artery calcification is evident. Overall heart size within normal limits. No free fluid or free air within the upper abdomen. Gallbladder is surgically absent. No acute bony abnormality. IMPRESSION: Unchanged pulmonary nodules. No concerning pulmonary nodules identified. Lung rads category 2: Benign. This document has been electronically signed by: Stefan Bazan MD on 07/27/2025 09:21:07
== END 2025-07-23 15:37 | disposition home or self-care (01) ==
LOC: HO.CT 15:36
PROVIDERS: PCP Internal Medicine; Visit Provider Physician Assistant Medical
DX: Z12.2 Encounter for screening for malignant neoplasm of respiratory organs (principal); F17.210 Nicotine dependence, cigarettes, uncomplicated
CPT/HCPCS: 71271

== ENCOUNTER → 2025-07-23 15:44 | Outpatient (BNV) | payer MEDICARE, SELFPAY | PROVIDERS: PCP Internal Medicine; Visit Provider Radiology Diagnostic Radiology | DX: Z12.2 Encounter for screening for malignant neoplasm of respiratory organs (principal); R91.8 Other nonspecific abnormal finding of lung field; Z87.891 Personal history of nicotine dependence | CPT/HCPCS: 71271 ==

== ENCOUNTER → 2025-08-06 10:05 | Outpatient (REF) | payer MEDICARE, SELFPAY ==
--- NOTE | 2025-08-06 10:08 | CA_ITS ---
Acquisition Time: 2025-08-06 10:44:43 Total Exercise Time: 00:06:00 Test Indications: SOB, I25.10 Medications: SEE H&P Protocol: DARYL Max HR: 144 BPM 94% of Pred: 153 BPM Max BP: 180/64 mmHG Max Work Load: 7.0 METS Exercise stress test with exercise 6 mins of Daryl Protocol, achieving 92% MPHR, with reports of SOB, no chest pain, with isolated PACs and PVCs, with normotensive response to exercise. Without any EKG changes meeting criteria for ischemia. In recovery, pt's breathing returned to baseline. Nuclear images pending. Test reviewed with Dr. Rice. Referred By: Ward Singh Electronically Signed By: Ward Singh
== END ==
LOC: HO.CARD 10:05
PROVIDERS: PCP Internal Medicine
DX: I25.10 Atherosclerotic heart disease of native coronary artery without angina pectoris (principal); R06.02 Shortness of breath
CPT/HCPCS: 78452; 93017; A9500

== ENCOUNTER → 2025-08-06 10:08 | Outpatient (BNV) | payer MEDICARE, SELFPAY | PROVIDERS: PCP Internal Medicine | DX: I49.1 Atrial premature depolarization (principal); I49.3 Ventricular premature depolarization; R06.02 Shortness of breath | CPT/HCPCS: 93016; 93018 ==

== ENCOUNTER 2025-09-17 13:51 | Outpatient (AMB) | payer MEDICARE, SELFPAY ==
--- NOTE | 2025-09-17 14:02 | MHC.OFFVIS ---
Vital Signs 09/17/25 14:03 Height 5 ft 3 in Weight 164 lb 7.437 oz BMI 29.1 BP 112/64 Blood Pressure Location Lt brachial Position Sitting Pulse 70 Pulse Source Monitor Intake Visit Reasons: follow up/ exercise mibi Purchasing/Receiving Required: No Accompanied by: Self / Same As Patient Allergies No Known Allergies (No Known Allergies*) Allergy (Verified 09/17/25 14:05) Medication List - Last Reconciled 09/17/25 by Ward Sinhg NP albuterol sulfate 90 mcg/actuation (Ventolin HFA) 2 puffs inhalation Q6H PRN aspirin 81 mg PO DAILY atorvastatin 80 mg PO DAILY bisacodyl 5 mg PO ONCE 1 day budesonide-formoterol 160-4.5 mcg/actuation (Symbicort) 2 puffs inhalation Q12H cetirizine 10 mg PO DAILY PRN meloxicam 15 mg PO DAILY polyethylene glycol 3350 (Miralax) 238 grams PO ONCE HPI Comments Details: This is a 69-year-old male female patient coming in for a follow-up visit. Patient with a history of hyperlipidemia, mild aortic stenosis, coronary artery disease, sleep apnea, and smoker who reported shortness of breath with exertion for which patient underwent a stress test. Today, patient is reporting feeling well overall with improvement in the shortness of breath and denies any exertional chest pain, palpitations, dizziness, orthopnea, PND, leg edema, presyncope or syncope. Patient is reporting compliance with all her medications. Unfortunately patient continues to smoke but is trying to quit. [facility] Medical History Nicotine dependence, cigarettes, uncomplicated Personal history of nicotine dependence Hypertriglyceridemia Overweight (BMI 25.0-29.9) History of seizures Hypothyroid Lumbar radiculopathy Surgical History History of tubal ligation History of colonoscopy History of appendectomy History of hysterectomy History of lumbar surgery History of cholecystectomy History of meniscectomy of left knee Family History Sister Skin cancer Father Lung cancer Mother Lung cancer Social History Housing: Apartment Alcohol intake: current Alcohol intake frequency: holidays/special occasions only Comment: holidays Patient Tobacco Use Status: Current someday Tobacco user Tobacco use type: Cigarette Cigarette Packs Per Day: 1 Cigarettes Per Day: 15 Years Smoked: (onset 15yo, 1/2-1ppd x 51yrs, 37pyh) e-Cigarette/Vaping Use: Never Used Second Hand Smoke Exposure: No service: No Current occupational status: employed Cognitive needs: No Hearing needs: No Vision needs: Yes (glasses ) Female Reproductive History Menstrual Age of Menarche: 15 Review of Systems Const Denies daytime sleepiness, Denies difficulty sleeping, Denies snoring, Denies stops breathing during sleep and Denies weakness Card Denies chest pain, Denies rapid heart rate, Denies irregular heart rhythm, Denies claudication, Denies leg edema, Denies lightheadedness, Denies palpitations, Denies dyspnea, Denies dyspnea on exertion, Denies orthopnea, Denies paroxysmal nocturnal dyspnea and Denies slow heart rate Resp Denies cough, Denies dyspnea, Denies dyspnea on exertion and Denies snoring GI Reports no additional complaints, Denies hematochezia, Denies change in stool character and Denies dyspepsia Musc Denies abnormal gait, Denies muscle weakness and Denies numbness Neuro Denies abnormal gait, Denies numbness and Denies weakness Endo Denies palpitations Physical Exam Vital Signs: Last Vital Signs Pulse 70 09/17/25 14:03 BP 112/64 09/17/25 14:03 BMI result Body Mass Index 29.1 Const General: cooperative, healthy appearing, comfortable and no acute distress Orientation/consciousness: patient oriented x3 HEENT Head: Yes normal to inspection Neck Neck: Yes normal visual inspection, Yes trachea midline and Yes supple Chest Chest palpation & inspection: normal inspection of the chest Resp Effort & Inspection: normal respiratory effort Auscultation: clear to auscultation bilaterally, no crackles, no rales, no rhonchi and no wheezes Cardio Jugular venous distension: no JVD Palpation: normal PMI Rate: regular rate Rhythm: regular rhythm Heart sounds: S1 normal heart sound present, S2 normal heart sound present, no click, no gallops, Murmur heart sound present systolic at the right sternal border and no rubs Peripheral pulses: Peripheral pulses 2+ throughout GI Inspection: Yes normal to inspection Palpation (GI): Soft to palpation Auscultation: normal bowel sounds Skin General skin exam: no rashes or lesions noted Neuro General: patient oriented x3 Extrem General: Yes normal to inspection, No no pedal edema and No calf tenderness Psych Appearance: grossly normal Mental Status: mental status grossly normal Speech and movement: Normal speech and movement present Office Procedures EKG Details: EKG today showed normal sinus rhythm, rate 70 beats per minute, right atrial enlargement, right axis deviation, pulmonary disease pattern, nonspecific ST-T, [place], [place]. [id number], Complete Assessment & Plan Assessment & Plan (1) Atherosclerotic cardiovascular disease: Code(s): I25.10 - Atherosclerotic heart disease of [place] coronary artery without angina pectoris Category: Medical Plan: 01/13/2025-echo study showed a normal LV systolic function with the ejection fraction at 66% with hypokinetic basal inferior lateral segment and aortic valve sclerosis. 08/06/2025-patient underwent myocardial perfusion study that showed normal perfusion. Given above finding and resolution of her symptoms, no further testing indicated at this time. On a previous chest CT was noted that patient had some coronary artery calcifications. If patient indeed has new development of symptoms, we can pursue coronary CTA at that point. Advised to continue with baby aspirin and high-dose statin therapy. Ideally, LDL goal less than 70. Advised to seek ER care in case of exertional chest pain not resolved with rest. (2) Mild aortic stenosis: Comment: Code(s): I35.0 - Nonrheumatic aortic (valve) stenosis Category: Medical Plan: As above. (3) Obstructive sleep apnea (adult) (pediatric): Comment: ON CPAP Dr. Heath Code(s): G47.33 - Obstructive sleep apnea (adult) (pediatric) Category: Medical Plan: On CPAP therapy which patient is not fully compliant with the. Emphasized the need for compliance with CPAP for cardiovascular health. Patient verbalizes understanding. (4) Preop cardiovascular exam: Code(s): Z01.810 - Encounter for preprocedural cardiovascular examination Plan: Patient can proceed with the upcoming colonoscopy with the consideration that patient is at a low cardiac risk. Advised heart healthy diet, regular exercise, complete smoking cessation, med compliance, and management of vascular risk factors. Follow up in 1 year, sooner if needed. In the interim, patient will call the office with any concerns or change in symptoms. This note was generated using voice recognition software. While every effort has been made to ensure accuracy and proper plate roller, there may be occasional errors that could affect the content or meaning of the described symptoms. Orders: Orders AMB EKG-In Office Today Z01.810 - Encounter for preprocedural cardiovascular examination Coding Level of Care Code Est Pt Level 4 (16513) Complex EM visit Add On G2211 Diagnoses Atherosclerotic cardiovascular disease I25.10 Mild aortic stenosis I35.0 Obstructive sleep apnea (adult) (pediatric) G47.33 Preop cardiovascular exam Z01.810 CPT Codes EKG - CPT: [id number], Complete ([id number]) Time Spent (min) 31 Comment Time spent in reviewing the chart, test results, assessment, counseling and documentation.
[2025-09-17 14:03] VITALS: BP 112/64; PULSE 70; BMI 29.1
== END 2025-09-17 14:36 | disposition home or self-care (01) ==
LOC: HO.HCS 13:53
PROVIDERS: PCP Internal Medicine
DX: I25.10 Atherosclerotic heart disease of native coronary artery without angina pectoris (principal); I35.0 Nonrheumatic aortic (valve) stenosis; G47.33 Obstructive sleep apnea (adult) (pediatric); Z01.810 Encounter for preprocedural cardiovascular examination
CPT/HCPCS: 93010; 99214; G2211

== ENCOUNTER → 2025-09-17 13:51 | Outpatient (BNVA) | payer MEDICARE, SELFPAY | PROVIDERS: PCP Internal Medicine | DX: G47.33 Obstructive sleep apnea (adult) (pediatric) (principal); Z99.89 Dependence on other enabling machines and devices; I35.0 Nonrheumatic aortic (valve) stenosis; I25.10 Atherosclerotic heart disease of native coronary artery without angina pectoris; Z72.0 Tobacco use; Z01.810 Encounter for preprocedural cardiovascular examination; Z79.82 Long term (current) use of aspirin | CPT/HCPCS: 93005; 99212 ==

== ENCOUNTER 2025-10-22 10:19 | Day surgery (SDC) | payer MEDICARE, SELFPAY ==
--- NOTE | 2025-10-19 13:19 | P.CONAN_ITS ---
Documented by User: Cherie Romano NP 10/19/25 13:28 HPI - Anesthesia Eval Consult details Narrative: 70 yr old female for colonoscopy Optimized by cardiology for above procedure at 09/17/25 visit ([facility]) Atherosclerotic heart disease: 01/13/2025-echo study showed a normal LV systolic function with the ejection fraction at 66% with hypokinetic basal inferior lateral segment and aortic valve sclerosis. 08/06/2025-patient underwent myocardial perfusion study that showed normal perfusion. Per 09/17/25 note Given above finding and resolution of her symptoms, no further testing indicated at this time. On a previous chest CT was noted that patient had some coronary artery calcifications. If patient indeed has new development of symptoms, we can pursue coronary CTA at that point. Advised to continue with baby aspirin and high-dose statin therapy. TORIBIO: intermittent CPAP use +tobacco use PMFSH Active Problems Active Problems: All Active Problems Shortness of breath (Acute) Foul smelling urine (Acute) Hearing difficulty (Acute) Medicare annual wellness visit, subsequent (Acute) Nicotine dependence, cigarettes, uncomplicated (Acute) Breast cancer screening by mammogram (Acute) Hip pain, right (Acute) Lumbar degenerative disc disease (Acute) Colon cancer screening (Acute) Atherosclerotic cardiovascular disease (Acute) Osteoporosis (Acute) Tinea corporis (Acute) Echocardiogram abnormal (Acute) COPD (chronic obstructive pulmonary disease) (Acute) Overweight (BMI 25.0-29.9) (Acute) TSH elevation (Acute) Hypercholesterolemia (Acute) Menopause (Acute) Hypothyroid (Acute) Mild aortic stenosis (Acute) Obstructive sleep apnea (adult) (pediatric) (Acute) Past Medical History Medical History Nicotine dependence, cigarettes, uncomplicated Personal history of nicotine dependence Hypertriglyceridemia Overweight (BMI 25.0-29.9) History of seizures Hypothyroid Lumbar radiculopathy Family History Family History Sister Skin cancer Father Lung cancer Mother Lung cancer Surgical History Surgical History History of tubal ligation History of colonoscopy History of appendectomy History of hysterectomy History of lumbar surgery History of cholecystectomy History of meniscectomy of left knee Social History Social History Housing: Apartment Alcohol intake: current Alcohol intake frequency: does not drink Comment: holidays Patient Tobacco Use Status: Current everyday Tobacco user Tobacco use type: Cigarette Cigarette Packs Per Day: 1 Cigarettes Per Day: 15 Years Smoked: (onset 15yo, 1/2-1ppd x 51yrs, 37pyh) e-Cigarette/Vaping Use: Never Used Second Hand Smoke Exposure: No Have you been hit, kicked, punched, or otherwise hurt by someone within the past year? If so, by whom?: No Are you DNR?: No Advance Directives: No Advance Directives Information Provided: Yes service: No Current occupational status: employed Cognitive needs: No Hearing needs: No Vision needs: Yes (glasses ) Meds Allergies Allergy/AdvReac Type Severity Reaction Status Date / Time No Known Allergies (No Known Allergy Verified 09/17/25 14:05 Allergies*) Exam Narrative Narrative: EKG as reported in 09/17/25 cardiology note EKG today showed normal sinus rhythm, rate 70 beats per minute, right atrial enlargement, right axis deviation, pulmonary disease pattern, nonspecific ST-T, normal [place], corrected QT. ECHO 12/2024 Conclusions: - The left ventricular systolic function is normal. The calculated ejection fraction is 66% by biplane method. - The basal inferolateral segment is hypokinetic. - Aortic valve sclerosis, but no significant stenosis. Cardiolite Stress Test 08/06/25 IMPRESSION: 1. Myocardial perfusion imaging study shows likely normal myocardial perfusion. 2. Gated LVEF is 72%. 3. Transient ischemic dilatation not present. Documented by User: Hua Lainez MD 10/22/25 12:21 [facility] Past Medical History Medical History Nicotine dependence, cigarettes, uncomplicated Personal history of nicotine dependence Hypertriglyceridemia Overweight (BMI 25.0-29.9) History of seizures Hypothyroid Lumbar radiculopathy Family History Family History Sister Skin cancer Father Lung cancer Mother Lung cancer Family history of problems with anesthesia: No Surgical History Surgical History History of tubal ligation History of colonoscopy History of appendectomy History of hysterectomy History of lumbar surgery History of cholecystectomy History of meniscectomy of left knee History of Problems with Anesthesia: No Social History Social History Housing: Apartment Alcohol intake: current Alcohol intake frequency: does not drink Comment: holidays Patient Tobacco Use Status: Current everyday Tobacco user Tobacco use type: Cigarette Cigarette Packs Per Day: 1 Cigarettes Per Day: 15 Years Smoked: (onset 15yo, 1/2-1ppd x 53yrs, 37pyh) e-Cigarette/Vaping Use: Never Used Second Hand Smoke Exposure: No Have you been hit, kicked, punched, or otherwise hurt by someone within the past year? If so, by whom?: No Are you DNR?: No Advance Directives: No Advance Directives Information Provided: Yes service: No Current occupational status: employed Cognitive needs: No Hearing needs: No Vision needs: Yes (glasses ) Meds Allergies Allergy/AdvReac Type Severity Reaction Status Date / Time No Known Allergies (No Known Allergy Verified 09/17/25 14:05 Allergies*) Exam Exam Date and Time: Height,Weight and Vital Signs: 10/22/25 Airway TM Dist: >3cm Heart: rrr Lungs: cta Other: normal Assessment and Plan Assessment Anesthesia Assessment: Anesthesia Plan Discussed, Smoking Cess. Discussed and Chart Reviewed Final Anesthetic Review Family History of Problems with Anesthesia: No History of Problems with Anesthesia: No NPO: Yes ASA Class: III Final Preanesthetic Review: No Changes in Pt Med Stat, Meds/Allgs Chart Reviewed, Consent Obtained/Reviewed, Anes Risks/Benef Reviewed and DNR Form (If Appl.) Patient Risk: Intermediate Procedure Risk: Intermediate Anesthetic Plan Anesthetic Plan: MAC: Disposition: Standard PACU, Extended PACU, Inp. Admit - Standard Bed, Inp. Admit - IMC and Inp. Admit - ICU
[2025-10-21 15:36] VITALS: BMI 29.0
[2025-10-22 10:27] VITALS: BP 124/61; PULSE 76; RESP 19; TEMP 36.3; O2SAT 6; BMI 28.1
[2025-10-22] MEDS: Lactated Ringers 1,000 ML 100 ML IVCONT (10:50)
--- NOTE | 2025-10-22 11:30 | MHC.SHP ---
Pre-Procedural Eval Section A - 24 Hr Update-Section A only Date of Service: 10/22/25 Section B - Complete if H&P > 30 days Chief Complaint: screening Details of Present Illness: Nicotine dependence, cigarettes, uncomplicated Personal history of nicotine dependence Hypertriglyceridemia Overweight (BMI 25.0-29.9) History of seizures Hypothyroid Lumbar radiculopathy Surgical History History of tubal ligation History of colonoscopy History of appendectomy History of hysterectomy History of lumbar surgery History of cholecystectomy History of meniscectomy of left knee Present Medications: see Short Stay Collaborative assessment Allergies: Allergies Allergy/AdvReac Type Severity Reaction Status Date / Time No Known Allergies (No Known Allergy Verified 09/17/25 14:05 Allergies*) Review of Systems Review of Systems Comment: Ten point ROS negative Exam Exam Comment: Gen appear: No acute distress HEENT: no icterus Chest: No overt resp distress Abd: soft, nontender, nondistended Psych: Stable affect, answering questions appropriately Neuro: A/Ox3 noted to move all extremities spontaneously Ext: no peripheral edema Plan Diagnosis/Plan: Unchanged I have reviewed the history and physical and performed a pertinent physical examination on my patient. No changes have occurred unless specified. Time Spent With Patient Time: Total time managing care of this patient today ____ minutes.
--- NOTE | 2025-10-22 12:24 | P.OPN-COLO_ITS ---
Colonoscopy Operative Note Operative Note Date of Service: 10/22/25 Narrative: Procedure: Colonoscopy Indication: Screening Endoscopist: Mellisa Umana MD Anesthesia Provider: Dr Lainez Anesthesia type: MAC Instrument: Olympus [id number]-[id number] Consent: Indication, risks vs benefits, and alternatives were discussed with the patient who gave written informed consent to proceed. EKG, pulse, pulse oximetry and blood pressure were monitored throughout the procedure. Please see anesthesia flowsheet. Procedure: The patient was brought to the procedure room and placed in the left lateral decubitus position. IV medications were administered by the anesthesia provider in attendance. A digital rectal exam was performed which was abnormal for external hemorrhoids. A distal attachment cap was affixed to the tip of the colonoscope which was then inserted through the anus and advanced through the colon to the cecum at 75 cm. Appendiceal orifice and ileocecal valve were identified. Mucosa was carefully examined under high definition white light as the instrument was slowly withdrawn in a retrograde panoramic fashion. Retroflexion was performed in rectum. The procedure was not difficult. There were no immediate obvious complications. The quality of the prep was BBPS: 2+2+3 = adequate Withdrawal time 21 minutes. Limitations: No limitations. Findings: Mucosa: Normal to cecum. Protruding lesions: * 1 sessile polyp of size 4 mm in sigmoid colon. Cold snare polypectomy was performed. The polyp was completely removed and retrieved. * 5 sessile polyp of size 2-8 mm in rectum. Cold snare polypectomy was performed. The polyps were completely removed and retrieved. * Medium internal hemorrhoids without stigmata of recent bleeding. Impression: 1. Normal colon mucosa 2. Total of 6 polyps removed 3. External and internal hemorrhoids Recommendations: - Follow path results. - Repeat colonoscopy in 3 years if 3 or more polyps are adenoma, otherwise 5 years.
[2025-10-22 12:28] VITALS: BP 116/77; PULSE 70; RESP 16; TEMP 36.6; O2SAT 95
[2025-10-22 12:43] VITALS: BP 144/71; PULSE 53; RESP 16; TEMP 36.3; O2SAT 98
== END 2025-10-22 13:12 | disposition home or self-care (01) ==
PROVIDERS: PCP Internal Medicine; Visit Provider Internal Medicine
PROC: 0DJD8ZZ Inspection of Lower Intestinal Tract, Via Natural or Artificial Opening Endoscopic (ICD-10-PCS; CPT 45378; principal; 2025-10-22 12:50)
DX: Z12.11 Encounter for screening for malignant neoplasm of colon (principal); K64.8 Other hemorrhoids; K64.4 Residual hemorrhoidal skin tags; K63.5 Polyp of colon
CPT/HCPCS: 45385; 88305; J2003; J2704; J3010

== ENCOUNTER → 2025-10-22 10:19 | Outpatient (BNV) | payer MEDICARE, SELFPAY | PROVIDERS: PCP Internal Medicine; Visit Provider Internal Medicine | DX: Z12.11 Encounter for screening for malignant neoplasm of colon (principal); K63.5 Polyp of colon; K64.8 Other hemorrhoids | CPT/HCPCS: 45385 ==

== ENCOUNTER 2025-11-09 10:22 | Outpatient (AMB) | payer MEDICARE, SELFPAY ==
--- NOTE | 2025-11-09 10:24 | MHC.PC.OV ---
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 Accompanied by: Self / Same As Patient Allergies No Known Allergies (No Known Allergies*) Allergy (Verified 11/09/25 10:24) Medication List - Last Reconciled 11/09/25 by Reynaldo White MD albuterol sulfate 90 mcg/actuation (Ventolin HFA) 2 puffs inhalation Q6H PRN aspirin 81 mg PO DAILY atorvastatin 80 mg PO DAILY budesonide-formoterol 160-4.5 mcg/actuation (Symbicort) 2 puffs inhalation Q12H cetirizine 10 mg PO DAILY PRN meloxicam 15 mg PO DAILY Tobacco use date assessed: 12/30/24 Fall risk assessment: No Falls in past year Last assessed Fall Risk: 11/09/25 Dental Screening Dental Screen Date: 12/30/24 HPI HPI Comments History of Present Illness Details The patient is a 70-year-old female with PMH of osteoporosis, HLD, CAD, TORIBIO, mild aortic stenosis and carpal tunnel presenting for evaluation of worsening bilateral carpal tunnel syndrome. 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 Symptoms include wrist pain, a burning sensation in the fingers, skin cracking on her fingers, and shooting pain. She reports being unable to fully bend her fingers or make a fist, and her fingers get stuck and then crack or pop, which is painful. These symptoms are especially prominent upon waking in the morning, requiring her to manually open her fingers. Her non-dominant hand (left hand) is also affected, with two fingers locking and occasional shooting pain from her thumb to her wrist. Two months ago, she visited an urgent care where she was diagnosed with carpal tunnel syndrome and given a prescription for pain medication and a hand cream, which have not provided relief. She has been attempting self-management with daily exercises, massaging her hands, and soaking them in hot water. The patient has never used a splint or brace for her condition and has not had any prior X-rays of her hands. She has a history of back problems for which she received physical therapy. [facility] Medical History (Updated 11/09/25 @ 10:49 by Reynaldo White MD) Nicotine dependence, cigarettes, uncomplicated Personal history of nicotine dependence Hypertriglyceridemia Overweight (BMI 25.0-29.9) History of seizures Hypothyroid Lumbar radiculopathy Surgical History (Updated 11/09/25 @ 11:25 by Jeny Green) History of tubal ligation History of colonoscopy History of appendectomy History of hysterectomy History of lumbar surgery History of cholecystectomy History of meniscectomy of left knee Family History Sister Skin cancer Father Lung cancer Mother Lung cancer Social History Housing: Apartment Alcohol intake: current Alcohol intake frequency: does not drink Comment: holidays Patient Tobacco Use Status: Current everyday Tobacco user Tobacco use type: Cigarette Cigarette Packs Per Day: 1 Cigarettes Per Day: 15 Years Smoked: (onset 15yo, 1/2-1ppd x 51yrs, 37pyh) Packs Per Year: 0 Packs per year/per ci.00 e-Cigarette/Vaping Use: Never Used Second Hand Smoke Exposure: No service: No Current occupational status: employed Cognitive needs: No Hearing needs: No Vision needs: Yes (glasses ) Female Reproductive History Menstrual Age of Menarche: 15 Questionnaire Thrive Questionnaire Date Thrive assessed: 03/26/25 I am a: Patient What is your living situation today?: I have a steady place to live Within the past 12 months, did the food you bought not last and you didn't have the money to get more?: I choose not to answer this question Within the past 12 months, did you worry whether your food would run out before you got money to buy more?: I choose not to answer this question Do you have trouble paying for medicines?: Yes Do you have trouble getting transportation to medical appointments?: No Do you have trouble paying your heating and electricity bill?: No Do you have trouble taking care of your child, family member or friend?: No Do you have trouble with day-to-day activities such as bathing, preparing meals, shopping, managing finances, etc.?: No Are you currently unemployed and looking for a job?: No Are you interested in more education?: I choose not to answer this question Currently or been in a relationship where the following occur: I choose not to answer THRIVE Score: 0 QUE-7 AMB Questionnaire QUE-7 Date QUE - 7 assessed: 12/30/24 Source: Developed by Drs. Ernst Falcon, Massiel Ellis, Neil Desir and colleagues, with an educational vance from [employer]. Review of Systems Const Details: As per HPI. Physical exam (Primary Care) Vital Signs: Last Vital Signs Temp 97.9 F 11/09/25 10:25 Pulse 65 11/09/25 10:25 Resp 18 11/09/25 10:25 BP 130/78 11/09/25 10:25 BMI result Body Mass Index 28.2 Tobacco/Smoking Status: Tobacco use Status Tobacco use date assessed 12/30/24 11/09/25 10:26 Patient Tobacco Use Status Current everyday Tobacco 11/09/25 10:26 Tobacco use type Cigarette 11/09/25 10:26 e-Cigarette/Vaping Use Never Used 11/09/25 10:26 Thrive Assessment: Date of Thrive Assessment Date Thrive assessed 03/26/25 11/09/25 10:26 Currently or been in a relationship where the following occur: I choose not to answer Const Other: Pertinent findings are in BOLD GENERAL APPEARANCE NAD, activity normal for age, well developed/ well nourished, no cyanosis, pallor, or diaphoresis. EYES lids/conjunctiva normal. EARS/NOSE/THROAT Mucous membranes moist, nares normal, lips/teeth normal uvula midline without oral pharyngeal erythema, exudate or swelling TMs normal bilaterally. No lymphangitis/lymphedema. HEAD/NECK normocephalic atraumatic, no facial trauma, neck is supple. RESPIRATORY respiratory effort normal, speaks in full sentences, no tripod position, no accessory muscle use. Lungs clear to auscultation without rhonchi, wheezes, rales CARDIAC Regular rate and rhythm, no edema. ABDOMINAL Soft, ND/NT. No evidence of fluid wave. No pulsatile masses on exam, rebound tenderness, Cardenas sign or pain over Mcburney's point. MUSCLES/EXTREMITIES No abnormal range of motion, no swelling. SKIN Warm, pink and dry. No rashes, dermatoses, petechiae or lesions. NEUROLOGICAL Speech is clear and appropriate. Normal level of consciousness. Gait and coordination are normal. 5/5 strength in all extremities. PSYCH Normal mood and affect. Judgement/competence is appropriate Patient was not able to complete the phalen test due to severe pain. Tinel test positive bilaterally. Coding Level of Care Code Est Pt Level 3 (83559) Diagnoses Carpal tunnel syndrome G56. Time Spent (min) 20 Assessment & Plan Assessment & Plan (1) Carpal tunnel syndrome: Code(s): G56.00 - Carpal tunnel syndrome, unspecified upper limb Category: Medical Plan: - The patient's symptoms of bilateral hand pain, numbness, and weakness have worsened over the past two months and are consistent with carpal tunnel syndrome, which was previously diagnosed at an urgent care. - Initial treatments with pain medication and hand cream have been ineffective. - An X-ray of both hands was ordered. - A referral will be placed for the patient to be evaluated by an orthopedic hand surgeon. - A referral will also be placed for occupational therapy. - The patient is advised to purchase an [id number] carpal tunnel splint or brace to maintain a neutral wrist position. - For symptomatic relief, the patient may continue using her prescribed pain medication, and can also try Tylenol or meloxicam. Plan I discussed with the patient that her symptoms are consistent with carpal tunnel syndrome, and her current treatments have not been effective. I explained the plan, which includes obtaining bilateral hand X-rays today and referring her to an orthopedic hand surgeon and occupational therapy. I recommended she try an [id number] wrist splint for symptomatic relief and discussed pain medication options such as Tylenol and meloxicam. I set an expectation that it may take some time to secure an appointment with the surgeon and advised her to call the surgeon's office if she has not been contacted within two weeks. Orders: Orders OT Evaluation and Treatment Today G56.00 - Carpal tunnel syndrome, unspecified upper limb XR Hand Bilat min 3v Today G56.00 - Carpal tunnel syndrome, unspecified upper limb Referrals Hand Surgery Referral G56.00 - Carpal tunnel syndrome, unspecified upper limb
[2025-11-09 10:25] VITALS: BP 130/78; PULSE 65; RESP 18; TEMP 36.6; BMI 28.2
--- OUTSIDE RECORDS SUMMARY | 2025-11-09 11:36 | XMS_ITS ---
Author Name [facility] Organization Unknown Encounters Encounter Type Encounter Reason Primary Diagnosis Location Date [facility] 08/23/2025 Care Team Organization Name Specialty Phone Email Start Date End [facility] 08[facility]25
== END 2025-11-09 11:27 | disposition home or self-care (01) ==
LOC: HO.HMCH 10:23
PROVIDERS: PCP Internal Medicine; Visit Provider Internal Medicine
DX: G56.00 Carpal tunnel syndrome, unspecified upper limb (principal)

== ENCOUNTER 2025-11-09 10:22 | Outpatient (REF) | payer MEDICARE, SELFPAY ==
--- NOTE | ~2025-11-09 | XR_ITS ---
EXAMINATION: X-ray bilateral hands CLINICAL INFORMATION: Carpal tunnel syndrome COMPARISON: None TECHNIQUE: Right hand 3 views. Left hand 3 views. FINDINGS: Right hand: Bone mineralization is slightly decreased. Alignment is anatomic. No visible acute fracture or dislocation. Small corticated ossification along the lateral aspect of the distal second middle phalanx, has a chronic appearance, could be related to old injury. Rounded lucency in scaphoid, appears nonaggressive, possibly a small cyst. Mild second DIP joint arthritis. No erosions. No abnormal soft tissue calcification. Left hand: Bone mineralization is slightly decreased. Alignment is anatomic. No visible acute fracture or dislocation. No significant joint space loss. No erosions. No abnormal soft tissue calcification. XR/XR Hand Bilat min 3v IMPRESSION: No acute osseous findings. Mild right second DIP joint degenerative changes. Additional findings as above. Electronically signed by: Oliver Flores MD 11/10/2025 11:20 AM [facility] [place]
[2025-11-09 11:25] LABS: MANUAL DIFF FLAG NO
[2025-11-09 11:51] LABS: Appearance Urine Clear; Glucose Urine UA Negative (Negative); PH 6.0 (5.0-9.0); Specific Gravity - Urine 1.015 (1.005-1.025); UMIC TRIGGER UACC YES
[2025-11-09 11:55] LABS: Hematocrit 49.8 % (37.0-47.0); Hemoglobin 16.2 g/dl (12.0-16.0); Imm Gran Abs Auto 0.02 X10*3/uL (0.00-0.03); Imm Gran Pct Auto 0.3 % (0.0-0.4); Lymphocytes Absolute Auto 1.9 X10*3/uL (1.2-4.9); Mean Corpuscular HGB Conc 32.5 g/dl (31.0-35.0); Mean Corpuscular Hemoglobin 31.0 pg (27.0-33.0); Mean Corpuscular Volume 95.2 fL (80.0-98.0); NRBC Abs Auto 0.000 X10*3/uL (0.0-0.012); NRBC Pct Auto 0.0 /100WBC (0.0-0.2); Platelet Count 217 X10*3/uL (160-400); Red Blood Count 5.23 X10*6/uL (4.20-5.50); White Blood Count 7.3 X10*3/uL (4.8-10.8)
[2025-11-09 12:29] LABS: Alanine Aminotransferase 20 U/L (0-31); Albumin Level 4.7 g/dL (3.5-5.0); Alkaline Phosphatase 107 U/L (39-117); Anion Gap 11 (12-20); Aspartate Amino Transferase 26 U/L (5-31); Blood Urea Nitrogen 18 mg/dL (9-16); Calcium 9.9 mg/dL (8.4-10.2); Carbon Dioxide 32 mmol/L (22-29); Chloride 101 mmol/L (96-108); Cholesterol 269 mg/dL (<200); Estimated Glomerular Filt Rate > 60; HDL Cholesterol 71 mg/dL (>40); Potassium 4.5 mmol/L (3.3-5.1); Sodium 139 mmol/L (135-145); Total Protein 7.5 g/dL (6.5-8.0); Triglycerides 146 mg/dL (<150)
[2025-11-09 12:54] LABS: Free T4 (Free Thyroxine) 0.89 ng/dL (0.71-1.85); Thyroid Stimulating Hormone 3.56 uIU/mL (0.32-4.0)
[2025-11-09 12:57] LABS: Folate 7.6 ng/mL (> or = 4.0); Vitamin B12 450 pg/mL (200-900)
== END 2025-11-09 10:23 | disposition home or self-care (01) ==
LOC: HO.XRAY 10:22
PROVIDERS: Absent Provider Internal Medicine; PCP Internal Medicine; Visit Provider Internal Medicine
DX: I25.10 Atherosclerotic heart disease of native coronary artery without angina pectoris (principal); E78.00 Pure hypercholesterolemia, unspecified; G56.03 Carpal tunnel syndrome, bilateral upper limbs; E03.9 Hypothyroidism, unspecified; E78.1 Pure hyperglyceridemia; R30.0 Dysuria
CPT/HCPCS: 36415; 73130; 80053; 80061; 81001; 82306; 82607; 82746; 84439; 84443; 85025; 99212

== ENCOUNTER → 2025-11-09 11:27 | Outpatient (BNV) | payer MEDICARE, SELFPAY | PROVIDERS: Absent Provider Internal Medicine; PCP Internal Medicine; Visit Provider Radiology Diagnostic Ultrasound | DX: G56.00 Carpal tunnel syndrome, unspecified upper limb (principal); M19.041 Primary osteoarthritis, right hand | CPT/HCPCS: 73130 ==